=== PATIENT | female | born 1935 | race Caucasian/White ===

== ENCOUNTER → 2018-02-15 | Outpatient (CLI) | payer MEDICARE ==
--- NOTE | 2018-02-15 15:39 | RAD ---
Examination: Ultrasound kidneys HISTORY: History of chronic kidney disease COMPARISON: None available FINDINGS: The right kidney measures 9.9 x 4.0 x 3.5 cm. The left kidney measures 10.0 x 4.5 x 4.5 cm. There is a 2.5 cm cyst identified in the left kidney. Few prominent left renal pyramids identified. No ureteral jets identified in the urinary bladder. Urinary bladder is mildly distended. IMPRESSION: 1. 2.5 cm cyst identified in the left kidney. Electronically signed by: Lucio Staley MD (02/15/2018 3:36 PM) [id number]
--- NOTE | 2018-02-15 17:17 | RAD ---
Examination: Ultrasound thyroid HISTORY: History of enlarged thyroid COMPARISON: None available. FINDINGS: The right lobe of the thyroid gland measures 3.5 x 1.1 x 1.1 cm. The left lobe of the thyroid gland measures 3.9 x 0.8 x 1.0 cm. There is a solid-appearing nodule identified in the right lower thyroid gland measuring 1 cm with vascular flow within. Tiny punctate microvascular calcifications identified in the nodule. IMPRESSION: Solid-appearing 1 cm nodule identified in the right lobe of thyroid gland. ACR TR 4. Recommend fine-needle aspiration. Electronically signed by: Lucio Staley MD (02/15/2018 5:13 PM) [id number]
== END | disposition home or self-care (01) ==
LOC: US 12:40
PROVIDERS: ATTEND Nurse Practitioner Family
DX: E04.1 Nontoxic single thyroid nodule (principal); N28.1 Cyst of kidney, acquired; N18.9 Chronic kidney disease, unspecified; Z85.118 Personal history of other malignant neoplasm of bronchus and lung
CPT/HCPCS: 76536; 76770

== ENCOUNTER 2018-04-17 01:30 | Inpatient (IN) | payer MEDICARE ==
[~2018-04-17] VITALS: Ht 167.6 cm; Wt 66.1 kg
[2018-04-17] MEDS ORDERED: IV NORMAL SALINE 500ML 500 ML IV ONE (01:45)
[2018-04-17] MEDS ORDERED: cloNIDine HCL 0.1 MG TABLET PO ONE (01:45)
[2018-04-17] MEDS ORDERED: ONDANSETRON PF 4 MG/2 ML VIAL. IV PRN ×2 (01:45→02:00)
--- NOTE | 2018-04-17 01:45 | ED.ADGEN ---
Adult General Chief Complaint Chief Complaint dizziness HPI HPI 82 years old female with history of hypertension who presented to the emergency department with vertigo stated her symptoms started around 8 PM and she presented to the emergency department at 1:40 AM. ' She describes her dizziness as room spinning around upon EMS arrival her blood pressure was 212/100. Last week she was admitted to [facility] for the same reason she had a workup done they increased her lisinopril to 40 mg and she was advised to follow-up with cardiology and outpatient. She denies any weakness or numbness and upper extremities and lower extremities no slurred speech no aphasia Review of Systems Review of Systems Constitutional: Denies fever or chills [] Eyes: Denies change in visual acuity, redness, or eye pain [] HENT: Denies nasal congestion or sore throat [] Respiratory: Denies cough or shortness of breath [] Cardiovascular: No additional information not addressed in HPI [] GI: Denies abdominal pain, nausea, vomiting, bloody stools or diarrhea [] : Denies dysuria or hematuria [] Musculoskeletal: Denies back pain or joint pain [] Integument: Denies rash or skin lesions [] Neurologic: Denies headache, focal weakness or sensory changes [] Endocrine: Denies polyuria or polydipsia [] All other systems were reviewed and found to be within normal limits, except as documented in this note. Current Medications Current Medications Current Medications Medications (Trade) Dose Ordered Sig/Nicholas Start Time Stop Time Status Last Admin Dose Admin Acetaminophen (Tylenol) 650 mg PRN Q4HRS PRN 04/17/18 02:00 04/18/18 01:59 UNV Clonidine HCl (Catapres) 0.1 mg 1X ONCE 04/17/18 01:45 04/17/18 01:46 UNV 04/17/18 02:00 0.1 MG Labetalol HCl (Normodyne) 10 mg Q1HR PRN 04/17/18 02:00 UNV Meclizine HCl (Antivert) 25 mg PRN Q6HRS PRN 04/17/18 01:45 UNV 04/17/18 02:00 25 MG Ondansetron HCl (Zofran) 4 mg PRN Q4HRS PRN 04/17/18 02:00 04/18/18 01:59 UNV Sodium Chloride 1,000 ml @ 0 mls/hr Q0M 04/17/18 01:46 04/18/18 01:45 UNV Physical Exam Physical Exam Constitutional: Well developed, well nourished, no acute distress, non-toxic appearance. [] HENT: Normocephalic, atraumatic, bilateral external ears normal, oropharynx moist, no oral exudates, nose normal. [] Eyes: PERRLA, EOMI, conjunctiva normal, no discharge. []Positive nystagmus Neck: Normal range of motion, no tenderness, supple, no stridor. [] Cardiovascular:Heart rate regular rhythm, no murmur [] Lungs & Thorax: Bilateral breath sounds clear to auscultation [] Abdomen: Bowel sounds normal, soft, no tenderness, no masses, no pulsatile masses. [] Skin: Warm, dry, no erythema, no rash. [] Back: No tenderness, no CVA tenderness. [] Extremities: No tenderness, no cyanosis, no clubbing, ROM intact, no edema. [] Neurologic: Alert and oriented X 3, normal motor function, normal sensory function, no focal deficits noted. [] Psychologic: Affect normal, judgement normal, mood normal. [] Current Patient Data Vital Signs Vital Signs Date Time Temp Pulse Resp B/P (MAP) Pulse Ox O2 Delivery O2 Flow Rate FiO2 04/17/18 02:00 64 195/86 Lab Results Laboratory Tests Test 04/17/18 01:35 Sodium Level 142 mmol/L (136-145) Potassium Level 4.0 mmol/L (3.5-5.1) Chloride Level 103 mmol/L (98-107) Carbon Dioxide Level 28 mmol/L (21-32) Anion Gap 11 (6-14) Blood Urea Nitrogen 16 mg/dL (7-20) Creatinine 0.9 mg/dL (0.6-1.0) Estimated GFR (Cockcroft-Gault) 59.9 Glucose Level 116 mg/dL (70-99) H Calcium Level 9.1 mg/dL (8.5-10.1) EKG EKG [] Radiology/Procedures Radiology/Procedures [] Course & Med Decision Making Course & Med Decision Making Pertinent Labs and Imaging studies reviewed. (See chart for details) [] Final Impression Final Impression [] Problems: (1) Vertigo (2) Hypertensive crisis Dragon Disclaimer Dragon Disclaimer This electronic medical record was generated, in whole or in part, using a voice recognition dictation system. CHINYERE RUIZ MD Apr 17, 2018 01:45
[2018-04-17] MEDS: IV NORMAL SALINE 1,000ML 1,000 ML IV SCH ×2 (01:46→18:07)
[2018-04-17 01:59] LABS: CALCIUM 9.1 mg/dL (8.5-10.1); CREATININE 0.9 mg/dL (0.6-1.0); GFR 59.9
[2018-04-17] MEDS: MECLIZINE 12.5 MG TABLET. PO PRN ×2 (02:00→08:33)
[2018-04-17] MEDS ORDERED: LABETALOL 20 MG/4 ML DISP.SYRIN. IVP PRN (02:00)
--- NOTE | 2018-04-17 02:15 | RAD ---
INDICATION: Dizziness COMPARISON: None. TECHNIQUE: Axial CT images obtained through the head without intravenous contrast. One or more of the following individualized dose reduction techniques were utilized for this examination: 1. Automated exposure control; 2. Adjustment of the mA and/or kV according to patient size; 3. Use of iterative reconstruction technique. FINDINGS: No intracranial hemorrhage. No midline shift. Basal cisterns patents. Ventricles and sulci are globally prominent. No acute osseous abnormality. Orbits and paranasal sinuses unremarkable. Scattered foci of low attenuation within the white matter. IMPRESSION: 1. No acute intracranial hemorrhage. 2. Scattered regions of low attenuation within the white matter. Non-specific in nature but frequently secondary to small vessel ischemic disease. If there is high clinical concern for acute causes MRI could better assess as to whether any of these foci are acute. 3. Prominence of ventricles and sulci which is frequently secondary to age related volume loss. Electronically signed by: Jesse Burch MD (04/17/2018 2:12 AM) [id number]
[2018-04-17 02:21] LABS: BASO # 0.1 x10^3/uL (0.0-0.2); BASO % 1 % (0-3); EOS # 0.2 x10^3/uL (0.0-0.7); EOS % 2 % (0-3); HEMATOCRIT 38.8 % (36.0-47.0); HEMOGLOBIN 12.8 g/dL (12.0-15.5); LYMPH # 2.6 x10^3/uL (1.0-4.8); LYMPH % 27 % (24-48); MEAN CORPUSCULAR HEMOGLOBIN 29 pg (25-35); MEAN CORPUSCULAR HGB CONC 33 g/dL (31-37); MEAN CORPUSCULAR VOLUME 88 fL (79-100); MONO # 0.7 x10^3/uL (0.0-1.1); MONO % 8 % (0-9); NEUT # 5.9 x10^3uL (1.8-7.7); NEUT % 62 % (31-73); PLATELET COUNT 304 x10^3/uL (140-400); RED BLOOD COUNT 4.43 x10^6/uL (3.50-5.40); RED CELL DISTRIBUTION WIDTH 14.2 % (11.5-14.5); WHITE BLOOD COUNT 9.4 x10^3/uL (4.0-11.0)
[2018-04-17 03:45] VITALS: BP 140/65
[2018-04-17 06:39] VITALS: BP 104/53
[2018-04-17 11:00] VITALS: BP 131/59
[2018-04-17] MEDS: ACETAMINOPHEN 325 MG TABLET PO PRN ×2 (14:46→18:50)
[2018-04-17 15:21] VITALS: BP 156/72
[2018-04-17] MEDS ORDERED: ASPI81TA50 PO (19:43)
[2018-04-17] MEDS ORDERED: ISOS60TA2 PO (19:43)
[2018-04-17] MEDS ORDERED: VALA500T PO (19:43)
[2018-04-17] MEDS ORDERED: SIMV20TA3 PO (19:43)
[2018-04-17] MEDS ORDERED: LISI-334 PO (19:43)
[2018-04-17] MEDS ORDERED: METO-247 PO (19:43)
[2018-04-17] MEDS ORDERED: DIAZ5TAB4 PO (19:43)
--- NOTE | 2018-04-17 19:51 | PDOC ---
Exam Note: Neo Note: Please also refer to the separate dictated note~for this date of service dictated separately.~Patient seen individually. Discussed the patient with Nursing staff reviewed the chart.~Reviewed interim history and current functioning. Reviewed vital signs,~Labs/ Radiology~and current medications noted below. Continue current treatment with the changes noted in the dictated addendum note Assessment: Vital Signs: Vital Signs Date Time Temp Pulse Resp B/P (MAP) Pulse Ox O2 Delivery O2 Flow Rate FiO2 04/17/18 15:21 58 15 156/72 (100) 04/17/18 11:00 99 Room Air 04/17/18 03:45 97.6 I&O Intake and Output 04/17/18 06:59 Intake Total 740 ml Balance 740 ml Intake Oral 100 ml IV Total 640 ml Labs: Laboratory Tests Test 04/17/18 01:35 04/17/18 03:30 White Blood Count 9.4 x10^3/uL (4.0-11.0) Red Blood Count 4.43 x10^6/uL (3.50-5.40) Hemoglobin 12.8 g/dL (12.0-15.5) Hematocrit 38.8 % (36.0-47.0) Mean Corpuscular Volume 88 fL (79-100) Mean Corpuscular Hemoglobin 29 pg (25-35) Mean Corpuscular Hemoglobin Concent 33 g/dL (31-37) Red Cell Distribution Width 14.2 % (11.5-14.5) Platelet Count 304 x10^3/uL (140-400) Neutrophils (%) (Auto) 62 % (31-73) Lymphocytes (%) (Auto) 27 % (24-48) Monocytes (%) (Auto) 8 % (0-9) Eosinophils (%) (Auto) 2 % (0-3) Basophils (%) (Auto) 1 % (0-3) Neutrophils # (Auto) 5.9 x10^3uL (1.8-7.7) Lymphocytes # (Auto) 2.6 x10^3/uL (1.0-4.8) Monocytes # (Auto) 0.7 x10^3/uL (0.0-1.1) Eosinophils # (Auto) 0.2 x10^3/uL (0.0-0.7) Basophils # (Auto) 0.1 x10^3/uL (0.0-0.2) Sodium Level 142 mmol/L (136-145) Potassium Level 4.0 mmol/L (3.5-5.1) Chloride Level 103 mmol/L (98-107) Carbon Dioxide Level 28 mmol/L (21-32) Anion Gap 11 (6-14) Blood Urea Nitrogen 16 mg/dL (7-20) Creatinine 0.9 mg/dL (0.6-1.0) Estimated GFR (Cockcroft-Gault) 59.9 Glucose Level 116 mg/dL (70-99) H Calcium Level 9.1 mg/dL (8.5-10.1) Troponin I Quantitative < 0.017 ng/mL (0-0.055) Nasal Screen MRSA (PCR) Negative (Negative) Current Medications: Meds: Current Medications Meclizine HCl (Antivert) 25 mg PRN Q6HRS PRN PO DIZZINESS Last administered on 04/17/18 08:33; Start 04/17/18 at 01:45 Ondansetron HCl (Zofran) 4 mg PRN 1X PRN IV NAUSEA/VOMITING Last administered on 04/17/18 02:08; Start 04/17/18 at 01:45 Sodium Chloride 500 ml @ 500 mls/hr 1X ONCE IV Last administered on 01:45; Start 04/17/18 at 01:45; Stop 04/17/18 at 02:44; Status DC Clonidine HCl (Catapres) 0.1 mg 1X ONCE PO Last administered on 04/17/18 02: 00; Start 04/17/18 at 01:45; Stop 04/17/18 at 02:16; Status DC Ondansetron HCl (Zofran) 4 mg PRN Q4HRS PRN IV NAUSEA/VOMITING; Start 04/17/18 at 02:00; Stop 04/18/18 at 01:59 Sodium Chloride 1,000 ml @ 75 mls/hr [id number] IV Last administered on 18:07; Start 04/17/18 at 01:46; Stop 04/18/18 at 01:45 Acetaminophen (Tylenol) 650 mg PRN Q4HRS PRN PO FEVER Last administered on 2/18 /19at 18:50; Start 04/17/18 at 02:00; Stop 04/18/18 at 01:59 Labetalol HCl (Normodyne) 10 mg PRN Q1HR PRN IVP HYPERTENSION, SEE COMMENTS Last administered on 04/17/18at 02:39; Start 04/17/18 at 02:00 Active Scripts Active Reported Aspir-Low (Aspirin) 81 Mg Tablet.dr 1 Tab PO DAILY Simvastatin 20 Mg Tablet 20 Mg PO DAILY Metoprolol Succinate ( Xl ) (Metoprolol Succinate) 100 Mg Tab.er.24h 100 Mg PO DAILY Isosorbide Mononitrate Er (Isosorbide Mononitrate) 60 Mg Tab.er.24h 60 Mg PO DAILY Lisinopril 20 Mg Tablet 40 Mg PO DAILY Valacyclovir (Valacyclovir Hcl) 500 Mg Tablet 800 Mg PO DAILY Diazepam 5 Mg Tablet 5 Mg PO HS I have reviewed the current psychotropics carefully including drug interactions. Risk benefit ratio favors no change other than as noted in my dictated progress note. Diagnosis: Problems: (1) Anxiety disorder (2) Adjustment disorder with anxiety (3) Major depressive disorder, recurrent episode MARINA ELLIS MD Apr 17, 2018 19:50
[2018-04-17] MEDS ORDERED: diazePAM 2 MG TABLET PO PRN (20:00)
--- NOTE | 2018-04-17 20:45 | CONS ---
DATE OF CONSULTATION: 04/17/2018 PSYCHIATRIC CONSULTATION This note covers elements not covered in my initial note 04/17/2018. IDENTIFYING DATA: The patient is an 82-year-old female seen in ICU bed 5, [facility] for a psychiatric consult requested by Dr. Solorio on account of the patient's anxiety and being "bundle of nerves." The patient was seen individually, discussed with Dr. Solorio and nursing staff, reviewed the chart. CHIEF COMPLAINT: "My plastic surgeon, Dr. Cox started me on Valium 5 mg at night after my 5 years ago. This helps me sleep. I do not take it every day. I do not want to change it. I take diazepam, not Valium." HISTORY OF PRESENT ILLNESS: The patient states she became depressed, extremely anxious about 5 years ago after the loss of her and her plastic surgeon. At that time, Dr. Cox started her on the Valium, which she is taking 5 mg at night. She states she does not take it every day, but if she can sleep, it has been particularly helpful. She states she has tried many other things, but nothing works like the Valium. No clear symptoms of bipolar disorder, suicidal or homicidal ideation. She has been admitted with hypertensive crisis and states for a few days prior to admission, she was having word finding problems, which are gradually improving as her blood pressure is stabilized. PAST PSYCHIATRIC HISTORY: As above. MEDICAL HISTORY: Hypertension, vertigo. DRUG ALLERGIES: CODEINE, PENICILLIN. FAMILY HISTORY: Noncontributory. SOCIAL HISTORY: No alcohol or drug abuse. 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 She lives at home with her son and states she does drive, but recently "my battery has been ." MENTAL STATUS EXAMINATION: The patient is seen individually. She is awake, alert, oriented. She is pleasant, verbal. Speech is coherent. Attention span somewhat short. Language function intact. She does appear somewhat anxious. No active suicidal or homicidal ideation. Intellect average. Insight good. Judgment intact. IMPRESSION: Adjustment disorder with anxiety; anxiety disorder, unspecified; history of major depressive disorder; hypertensive crisis. RECOMMENDATION: From a psychiatric standpoint since the patient states she has been on Valium 5 mg p.o. at bedtime, I would leave it unchanged for now until she is medically stable and perhaps then it could be reduced. We could drop it down to 2.5 mg p.o. at bedtime p.r.n. in the interim. As an outpatient, consideration may be given to tapering this and using trazodone instead for her insomnia or even low dose Remeron at 7.[address]time. [address] Solorio, thank you for the opportunity to participate in your patient's care. We will follow with you. MAN Josefina ELLIS MD DR: ISABELA/ty JOB#: [id number] / [id number]
[2018-04-17 21:22] VITALS: BP 141/71
[2018-04-17] MEDS: SIMVASTATIN 20 MG TABLET PO SCH (21:40)
--- NOTE | 2018-04-17 22:48 | HP ---
ADMIT DATE: 04/17/2018 HISTORY OF PRESENT ILLNESS: The patient is an 82-year-old female patient with history of hypertension, who presented to the Emergency Department complaining of vertigo; stated her symptoms started around 8:00 p.m. She presented to the Emergency around 1:40 a.m. She describes her dizziness as room spinning around. On arrival to the Emergency Room, her blood pressure was 212/100 and last week, she was admitted to [facility] for the same reason and had a workup done. They have increased her lisinopril to 40 mg. She was advised to follow with her career counselor as an outpatient. She denied any weakness, numbness. No slurring of speech or aphasia. She was investigated in the Emergency Room and was found to be hypertensive on arrival with a blood pressure of 192/86. Her lab work was unremarkable. Her troponin was less than 0.017. She has had a CT scan of the head that was unremarkable, showed that there is no acute intracranial hemorrhage, scattered regions of low attenuation within the white matter, nonspecific in nature, but frequently secondary to small vessel ischemic disease. There is high clinical concern for acute causes, MRI could better assess as to whether any of these foci are acute, prominence of ventricles and sulci, which is frequently secondary to age-related volume loss. She was admitted to control her blood pressure and also to consult neurologist, career counselor. She also seemed somewhat anxious and we will also consult the career counselor to evaluate and assist with management. PAST MEDICAL HISTORY: Significant for Meniere's disease, hypertension, coronary artery disease, status post PCI with stent deployment x 4, hyperlipidemia. She has lung cancer treated with recent radiation therapy and follows with , peripheral neuropathy, osteoarthritis. She has also dysphagia to both solids and liquids, and also chronic constipation. PAST SURGICAL HISTORY: Significant for right rotator cuff surgery. She has also had shingles and she was treated and she has ovarian cyst removed, cholecystectomy, 3 D and C. She had the bronchoscopy, colonoscopy, and esophagogastroduodenoscopy. ALLERGIES: She is allergic to PENICILLIN AND CODEINE. MEDICATIONS: Not available yet. FAMILY HISTORY: She is the only child, has no brothers and sister. Her father at the age of 96 and mother at the age of 43 because of end-stage renal disease. SOCIAL HISTORY: She is , has 2 sons and 2 daughters. She quit smoking 2 years ago. She does not drink alcohol. She was a homemaker. REVIEW OF SYSTEMS: The patient has right cataract extraction. Denied any glaucoma or macular degeneration. 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 She has denied any nosebleeds, stuffy nose or postnasal drip. Denied any sore throat, sore tongue, toothache, hoarseness of voice or difficulty swallowing. Did have some nausea, but no vomiting. Denied any diarrhea or constipation. Denied any hematemesis, melena or hematochezia. Denied any dysuria or frequency. She did complain of chest pain. Denied any shortness of breath, orthopnea, paroxysmal nocturnal dyspnea. Denied any cough, phlegm or hemoptysis. PHYSICAL EXAMINATION: GENERAL: When I examined her, she was resting slightly propped up in bed, in no apparent respiratory distress, slightly pale, no jaundice, cyanosis, or thyromegaly. No jugular venous distension. No limb edema. VITAL SIGNS: Her heart rate was 62, blood pressure was 163/75, temperature was 97.5, respiratory rate 24, and oxygen saturation was 97% on room air. HEAD, EYES, EARS, NOSE, AND THROAT: Showed normocephalic, atraumatic. NECK: Supple. HEART: Showed normal first and second sounds. No gallop, rub or murmur. CHEST: Clear to auscultation. No crepitation or rhonchi. ABDOMEN: Distended, soft, nontender. No guarding or rigidity. No organomegaly. All hernial orifices intact. Bowel sounds normal. NEUROLOGIC: She is awake. She is very hard of hearing, otherwise all cranial nerves intact. EXTREMITIES: She moves extremities without difficulty. She said she is unsteady on her feet as I have not tested her gait. SKIN: She has shingles in the distribution of probably T4 dermatome on the right side. LABORATORY DATA: Showed a serum sodium 142, potassium 4, chloride 103, bicarbonate 28, anion gap of 11, BUN 16, creatinine 0.9, estimated GFR was 60 mL per minute. Her glucose was 116, calcium was 9.1. Her white cell count was 9400, hemoglobin 12.8, hematocrit 38, MCV 88, and platelet count of 304,000. ASSESSMENT AND PLAN: In summary, this is an 82-year-old female patient who was admitted with new onset of vertigo on a background of Meniere's disease, hypertensive urgency. She also seemed to be extremely anxious. I do not have all the details, but she apparently has metastatic lung cancer and biopsies were planned for her right cervical lymph node if my understanding is right. I will get more information from [facility]. I will consult Dr. Jensen, the Cardiology team as well as Dr. Alvarado to assist with her management of anxiety. DAHLIA BRAMBILA MD DR: RADHA/ty JOB#: [id number] / [id number]
[2018-04-17 23:22] VITALS: BP 130/61
[2018-04-17] MEDS: diazePAM 5 MG TABLET PO SCH (23:23)
[2018-04-18] VITALS (9 sets, daily range): BP systolic 133–172; BP diastolic 60–78
[2018-04-18] MEDS ORDERED: ACETAMINOPHEN 500 MG TABLET PO PRN (05:15)
[2018-04-18] MEDS: ACETAMINOPHEN 325 MG TABLET PO PRN ×3 (05:40→23:03)
[2018-04-18 06:25] LABS: HEMATOCRIT 34.6 % (36.0-47.0); HEMOGLOBIN 11.4 g/dL (12.0-15.5); RED BLOOD COUNT 3.93 x10^6/uL (3.50-5.40); RED CELL DISTRIBUTION WIDTH 14.3 % (11.5-14.5); WHITE BLOOD COUNT 5.6 x10^3/uL (4.0-11.0)
[2018-04-18 06:40] LABS: CALCIUM 8.3 mg/dL (8.5-10.1); CREATININE 0.9 mg/dL (0.6-1.0); GFR 59.9; POTASSIUM 3.8 mmol/L (3.5-5.1)
[2018-04-18] MEDS: ASPIRIN ENTERIC COATED 81 MG TABLET.DR. PO SCH (08:26)
[2018-04-18] MEDS: LISINOPRIL 20 MG TABLET PO SCH (08:27)
[2018-04-18] MEDS: ISOSORBIDE MONONITRATE ER 30 MG TAB.ER.24H PO SCH (08:28)
[2018-04-18] MEDS: METOPROLOL SUCC 24HR ER 50 MG TAB.ER.24H. PO SCH (08:29)
[2018-04-18] MEDS ORDERED: VALACYCLOVIR HCL PO SCH (09:00)
--- NOTE | 2018-04-18 10:29 | PDOC2 ---
JASPER SAENZ LOADING SHOVEL OILER 04/18/18 1029: CONSULT Date of Admission DATE: 04/18/18 TIME: 10:28 Reason for Consult: HTN History of Present Illness Ms Alejandro is an 82 year old female recently discharged from [facility]. See full consult from . She was discharged on 04/14/18 to home and reports she was sitting watching TV and suffering from a mild headache. She reports headache was becoming progressively worse so she went to lay down and had a sudden onset of severe dizziness and double vision with associated nausea and vomiting and when checked her blood pressure was significantly elevated. She reports compliance with her changed antihypertensive medications although she had not yet started her Amlodipine and reports she was instructed to only take this as needed for elevated pressure. She denies other new complaints but does report pain due to shingles. Her son is at bedside and reports she is hesitant to take new medications or analgesics for fear of increasing symptoms. Past Medical History see full consult 04.13.18 done at [facility] Current Medications Current Medications Meclizine HCl (Antivert) 25 mg PRN Q6HRS PRN PO DIZZINESS Last administered on 04/17/18at 08:33; Start 04/17/18 at 01:45 Ondansetron HCl (Zofran) 4 mg PRN 1X PRN IV NAUSEA/VOMITING Last administered on 04/17/18at 02:08; Start 04/17/18 at 01:45 Sodium Chloride 500 ml @ 500 mls/hr 1X ONCE IV Last administered on at 01:45; Start 04/17/18 at 01:45; Stop 04/17/18 at 02:44; Status DC Clonidine HCl (Catapres) 0.1 mg 1X ONCE PO Last administered on 04/17/18at 02: 00; Start 04/17/18 at 01:45; Stop 04/17/18 at 02:16; Status DC Ondansetron HCl (Zofran) 4 mg PRN Q4HRS PRN IV NAUSEA/VOMITING; Start 04/17/18 at 02:00; Stop 04/18/18 at 01:59; Status DC Sodium Chloride 1,000 ml @ 75 mls/hr [id number] IV Last administered on at 18:07; Start 04/17/18 at 01:46; Stop 04/18/18 at 01:45; Status DC Acetaminophen (Tylenol) 650 mg PRN Q4HRS PRN PO FEVER Last administered on 04/17at 18:50; Start 04/17/18 at 02:00; Stop 04/18/18 at 01:59; Status DC Labetalol HCl (Normodyne) 10 mg PRN Q1HR PRN IVP HYPERTENSION, SEE COMMENTS Last administered on 04/17/18at 02:39; Start 04/17/18 at 02:00 Diazepam (Valium) 2 mg PRN QHS PRN PO ANXIETY; Start 04/17/18 at 20:00 Diazepam (Valium) 5 mg HS PO Last administered on 04/17/18at 23:23; Start at 21:00 Lisinopril (Prinivil) 40 mg DAILY PO Last administered on 04/18/18 08:27; Start 04/18/18 at 09:00 Aspirin (Aspirin Enteric Coated) 81 mg DAILYWBKFT PO Last administered on 08:26; Start 04/18/18 at 08:00 Isosorbide Mononitrate (Imdur) 60 mg DAILY PO Last administered on 04/18/18 08 :28; Start 04/18/18 at 09:00 Metoprolol Succinate (Toprol Xl) 100 mg DAILY PO Last administered on 08:29; Start 04/18/18 at 09:00 Simvastatin (Zocor) 20 mg HS PO Last administered on 04/17/18at 21:40; Start at 21:00 Non-Formulary Medication (Valacyclovir Hcl (Valacyclovir)) 800 mg DAILY PO ; Start 04/18/18 at 09:00; Stop 04/18/18 at 10:08; Status DC Acetaminophen (Tylenol) 650 mg PRN Q6HRS PRN PO PAIN / TEMP; Start 04/18/18 at 05:15; Stop 04/18/18 at 05:36; Status DC Acetaminophen (Tylenol) 650 mg PRN Q6HRS PRN PO PAIN / TEMP Last administered on 04/18/18at 09:53; Start 04/18/18 at 05:45 Valacyclovir HCl (Valtrex) 500 mg TID PO ; Start 04/18/18 at 14:00 Active Scripts Active Reported Aspir-Low (Aspirin) 81 Mg Tablet.dr 1 Tab PO DAILY Simvastatin 20 Mg Tablet 20 Mg PO DAILY Metoprolol Succinate ( Xl ) (Metoprolol Succinate) 100 Mg Tab.er.24h 100 Mg PO DAILY Isosorbide Mononitrate Er (Isosorbide Mononitrate) 60 Mg Tab.er.24h 60 Mg PO DAILY Lisinopril 20 Mg Tablet 40 Mg PO DAILY Valacyclovir (Valacyclovir Hcl) 500 Mg Tablet 800 Mg PO DAILY Diazepam 5 Mg Tablet 5 Mg PO HS Allergies: Coded Allergies: Penicillins (Verified Allergy, Intermediate, 04/17/18) codeine (Verified Allergy, Intermediate, 04/17/18) Review of System as per HPI otherwise negative General: Alert, Oriented X3, Cooperative, No acute distress HEENT: Atraumatic, EOMI, Mucous membr. moist/pink Lungs: Clear to auscultation, Normal air movement Heart: Normal S1, Normal S2, Other (no significant murmurs, no gallops, clicks or rubs) Abdomen: Normal bowel sounds, Soft, No tenderness Extremities: No cyanosis, No edema, Normal pulses Neuro: Normal speech, Strength at 5/5 X4 ext Psych/Mental Status: Mental status NL, Mood NL VITALS Vital Signs Date Time Temp Pulse Resp B/P (MAP) Pulse Ox O2 Delivery O2 Flow Rate FiO2 04/18/18 08:29 61 131/70 04/18/18 05:09 98.4 17 98 Room Air Labs Laboratory Tests Test 04/17/18 01:35 04/17/18 03:30 04/18/18 06:10 White Blood Count 9.4 x10^3/uL (4.0-11.0) 5.6 x10^3/uL (4.0-11.0) Red Blood Count 4.43 x10^6/uL (3.50-5.40) 3.93 x10^6/uL (3.50-5.40) Hemoglobin 12.8 g/dL (12.0-15.5) 11.4 g/dL (12.0-15.5) Hematocrit 38.8 % (36.0-47.0) 34.6 % (36.0-47.0) Mean Corpuscular Volume 88 fL (79-100) 88 fL (79-100) Mean Corpuscular Hemoglobin 29 pg (25-35) 29 pg (25-35) Mean Corpuscular Hemoglobin Concent 33 g/dL (31-37) 33 g/dL (31-37) Red Cell Distribution Width 14.2 % (11.5-14.5) 14.3 % (11.5-14.5) Platelet Count 304 x10^3/uL (140-400) 249 x10^3/uL (140-400) Neutrophils (%) (Auto) 62 % (31-73) Lymphocytes (%) (Auto) 27 % (24-48) Monocytes (%) (Auto) 8 % (0-9) Eosinophils (%) (Auto) 2 % (0-3) Basophils (%) (Auto) 1 % (0-3) Neutrophils # (Auto) 5.9 x10^3uL (1.8-7.7) Lymphocytes # (Auto) 2.6 x10^3/uL (1.0-4.8) Monocytes # (Auto) 0.7 x10^3/uL (0.0-1.1) Eosinophils # (Auto) 0.2 x10^3/uL (0.0-0.7) Basophils # (Auto) 0.1 x10^3/uL (0.0-0.2) Sodium Level 142 mmol/L (136-145) 145 mmol/L (136-145) Potassium Level 4.0 mmol/L (3.5-5.1) 3.8 mmol/L (3.5-5.1) Chloride Level 103 mmol/L (98-107) 110 mmol/L (98-107) Carbon Dioxide Level 28 mmol/L (21-32) 27 mmol/L (21-32) Anion Gap 11 (6-14) 8 (6-14) Blood Urea Nitrogen 16 mg/dL (7-20) 11 mg/dL (7-20) Creatinine 0.9 mg/dL (0.6-1.0) 0.9 mg/dL (0.6-1.0) Estimated GFR (Cockcroft-Gault) 59.9 59.9 Glucose Level 116 mg/dL (70-99) 83 mg/dL (70-99) Calcium Level 9.1 mg/dL (8.5-10.1) 8.3 mg/dL (8.5-10.1) Troponin I Quantitative < 0.017 ng/mL (0-0.055) Nasal Screen MRSA (PCR) Negative (Negative) Images CT head - IMPRESSION: 1. No acute intracranial hemorrhage. 2. Scattered regions of low attenuation within the white matter. Non-specific in nature but frequently secondary to small vessel ischemic disease. If there is high clinical concern for acute causes MRI could better assess as to whether any of these foci are acute. 3. Prominence of ventricles and sulci which is frequently secondary to age related volume loss. Assessment/Plan 1. accelerated hypertension - resume norvasc. Echo without significant abnormalities. ? reactive due to pain and anxiety. 2. Severe vertigo - neuro consulted. CT head without acute findings. ? utility of MRA. Will check carotid duplex. 3. paroxysmal atrial fibrillation, SR 4. CAD with prior PCI - angina free. consider outpatient MPI 5. bradycardia - reportedly at baseline, recent monitor completed at [facility]. request results. 6. HLD 7. hx lung CA 8. CKD stage 3 ROBERTO REY MD 04/18/18 1242: CONSULT Assessment/Plan Pt. seen and examined. Agree with above REAL ESTATE MANAGER note. Supportive care. May consider MPI given persistent HTN. Continue home meds. VSS Thanks. JASPER SAENZ APRN Apr 18, 2018 10:29 ROBERTO REY MD Apr 18, 2018 12:42
[2018-04-18] MEDS: MECLIZINE 12.5 MG TABLET. PO PRN (11:09)
[2018-04-18] MEDS: amLODIPine BESYLATE 5 MG TABLET PO SCH (11:09)
[2018-04-18] MEDS ORDERED: ONDANSETRON ODT 4 MG TAB.RAPDIS PO PRN (13:30)
[2018-04-18] MEDS: valACYclovir 500 MG TABLET. PO SCH ×2 (13:36→22:59)
[2018-04-18] MEDS ORDERED: ALPRAZolam 0.25 MG TABLET PO PRN (14:00)
--- NOTE | 2018-04-18 18:29 | RAD ---
DOPPLER CAROTID BILAT Clinical Indication: Dizziness. Procedure: Pulsed wave and color-flow duplex imaging was utilized to evaluate the extracranial carotid arteries. Comparison: None. Findings: RIGHT SIDE: Mild atherosclerotic plaque on kruse-scale images. Distal CCA peak systolic velocity 51 cm/sec. ICA peak systolic velocity 73 cm/sec. The right ICA/CCA ratio is 1.4. Flow within the right ECA is directed antegrade. To and Fro flow is seen in the right vertebral artery. LEFT SIDE: Mild atherosclerotic plaque on kruse-scale images. Distal CCA peak systolic velocity 63 cm/sec. ICA peak systolic velocity 73 cm/sec. The left ICA/CCA ratio is 1.2. Flow within the left vertebral artery and left ECA is directed antegrade. Carotid legend: CCA = common carotid artery ICA = internal carotid artery ECA = external carotid artery IMPRESSION: 1. No hemodynamically significant stenosis. 2. To and Fro flow in the right vertebral artery most likely secondary to subclavian steal phenomena. Electronically signed by: Joaquin West DO (04/18/2018 6:27 PM) [id number]
[2018-04-18] MEDS: diazePAM 5 MG TABLET PO SCH (22:59)
[2018-04-18] MEDS: SIMVASTATIN 20 MG TABLET PO SCH (22:59)
[2018-04-19 05:32] VITALS: BP 106/64
[2018-04-19 10:40] VITALS: BP 146/78
[2018-04-19] MEDS: ASPIRIN ENTERIC COATED 81 MG TABLET.DR. PO SCH (10:44)
[2018-04-19] MEDS: ISOSORBIDE MONONITRATE ER 30 MG TAB.ER.24H PO SCH (10:45)
[2018-04-19] MEDS: valACYclovir 500 MG TABLET. PO SCH ×2 (10:45→15:06)
[2018-04-19] MEDS: METOPROLOL SUCC 24HR ER 50 MG TAB.ER.24H. PO SCH (10:46)
[2018-04-19] MEDS: LISINOPRIL 20 MG TABLET PO SCH (10:46)
[2018-04-19] MEDS: amLODIPine BESYLATE 5 MG TABLET PO SCH (10:47)
[2018-04-19] MEDS: CAPSAICIN 0.025% TOPICAL CREAM 60GM TUBE. TP SCH ×2 (10:47→15:06)
[2018-04-19] MEDS: ACETAMINOPHEN 325 MG TABLET PO PRN (10:48)
--- NOTE | 2018-04-19 12:35 | PDOC ---
PROGRESS NOTES Assessment 1. accelerated hypertension - improved today with addition of norvasc. 2. Severe vertigo - Consider brain MRI/ Contrast CT, carotid duplex reveals abnormal flow in right vertebral artery suggestive of subclavian steal. Reviewed CT chest from last week with radiologist - dense calcification at right innominate/ subclavian suggestive of stenosis. , suggest CTA subclavian. 3. paroxysmal atrial fibrillation, remains SR 4. CAD with prior PCI - angina free. consider outpatient MPI 5. bradycardia - reportedly at baseline, recent monitor completed at [facility] [place]. request results. 6. HLD 7. hx lung CA 8. CKD stage 3 Subjective complains of difficulty concentrating of "finding words" otherwise feels ok. complains that she has been unable to do anything secondary to her symptoms. no chest pain, no dyspnea. very lightheaded yesterday with standing but negative orthostatics. Objective Vital Signs Date Time Temp Pulse Resp B/P (MAP) Pulse Ox O2 Delivery O2 Flow Rate FiO2 04/19/18 10:47 81 146/78 04/19/18 10:40 98.2 20 93 Room Air Intake and Output 04/19/18 06:59 Intake Total 970 ml Output Total 875 ml Balance 95 ml Intake Oral 970 ml Output Urine Total 875 ml Abdomen: Normal bowel sounds, Soft, No tenderness Heart: Normal S1, Normal S2, Other (no gallops, clicks or rubs) Extremities: No cyanosis, No edema, Normal pulses General: Alert, Oriented X3, Cooperative Lungs: Clear to auscultation, Normal air movement Neuro: Normal speech, Strength at 5/5 X4 ext Psych/Mental Status: Mental status NL, Mood NL Review of Relevant I have reviewed the following items edwin (where applicable) has been applied. Labs Laboratory Tests Test 04/18/18 06:10 White Blood Count 5.6 x10^3/uL (4.0-11.0) Red Blood Count 3.93 x10^6/uL (3.50-5.40) Hemoglobin 11.4 g/dL (12.0-15.5) Hematocrit 34.6 % (36.0-47.0) Mean Corpuscular Volume 88 fL (79-100) Mean Corpuscular Hemoglobin 29 pg (25-35) Mean Corpuscular Hemoglobin Concent 33 g/dL (31-37) Red Cell Distribution Width 14.3 % (11.5-14.5) Platelet Count 249 x10^3/uL (140-400) Sodium Level 145 mmol/L (136-145) Potassium Level 3.8 mmol/L (3.5-5.1) Chloride Level 110 mmol/L (98-107) Carbon Dioxide Level 27 mmol/L (21-32) Anion Gap 8 (6-14) Blood Urea Nitrogen 11 mg/dL (7-20) Creatinine 0.9 mg/dL (0.6-1.0) Estimated GFR (Cockcroft-Gault) 59.9 Glucose Level 83 mg/dL (70-99) Calcium Level 8.3 mg/dL (8.5-10.1) Medications Current Medications Meclizine HCl (Antivert) 25 mg PRN Q6HRS PRN PO DIZZINESS Last administered on 04/18/18 11:09; Start 04/17/18 at 01:45 Ondansetron HCl (Zofran) 4 mg PRN 1X PRN IV NAUSEA/VOMITING Last administered on 04/17/18 02:08; Start 04/17/18 at 01:45 Sodium Chloride 500 ml @ 500 mls/hr 1X ONCE IV Last administered on 01:45; Start 04/17/18 at 01:45; Stop 04/17/18 at 02:44; Status DC Clonidine HCl (Catapres) 0.1 mg 1X ONCE PO Last administered on 04/17/18 02: 00; Start 04/17/18 at 01:45; Stop 04/17/18 at 02:16; Status DC Ondansetron HCl (Zofran) 4 mg PRN Q4HRS PRN IV NAUSEA/VOMITING; Start 04/17/18 at 02:00; Stop 04/18/18 at 01:59; Status DC Sodium Chloride 1,000 ml @ 75 mls/hr [id number] IV Last administered on at 18:07; Start 04/17/18 at 01:46; Stop 04/18/18 at 01:45; Status DC Acetaminophen (Tylenol) 650 mg PRN Q4HRS PRN PO FEVER Last administered on 04/17at 18:50; Start 04/17/18 at 02:00; Stop 04/18/18 at 01:59; Status DC Labetalol HCl (Normodyne) 10 mg PRN Q1HR PRN IVP HYPERTENSION, SEE COMMENTS Last administered on 04/17/18at 02:39; Start 04/17/18 at 02:00 Diazepam (Valium) 2 mg PRN QHS PRN PO ANXIETY; Start 04/17/18 at 20:00 Diazepam (Valium) 5 mg HS PO Last administered on 04/18/18at 22:59; Start at 21:00 Lisinopril (Prinivil) 40 mg DAILY PO Last administered on 04/19/18 10:46; Start 04/18/18 at 09:00 Aspirin (Aspirin Enteric Coated) 81 mg DAILYWBKFT PO Last administered on 10:44; Start 04/18/18 at 08:00 Isosorbide Mononitrate (Imdur) 60 mg DAILY PO Last administered on 04/19/18 10 :45; Start 04/18/18 at 09:00 Metoprolol Succinate (Toprol Xl) 100 mg DAILY PO Last administered on 10:46; Start 04/18/18 at 09:00 Simvastatin (Zocor) 20 mg HS PO Last administered on 04/18/18 22:59; Start at 21:00 Non-Formulary Medication (Valacyclovir Hcl (Valacyclovir)) 800 mg DAILY PO ; Start 04/18/18 at 09:00; Stop 04/18/18 at 10:08; Status DC Acetaminophen (Tylenol) 650 mg PRN Q6HRS PRN PO PAIN / TEMP; Start 04/18/18 at 05:15; Stop 04/18/18 at 05:36; Status DC Acetaminophen (Tylenol) 650 mg PRN Q6HRS PRN PO PAIN / TEMP Last administered on 04/19/18 10:48; Start 04/18/18 at 05:45 Valacyclovir HCl (Valtrex) 500 mg TID PO Last administered on 04/19/18 10:45; Start 04/18/18 at 14:00 Amlodipine Besylate (Norvasc) 5 mg DAILY PO Last administered on 04/19/18 10: 47; Start 04/18/18 at 11:00 Capsaicin (Zostrix) 1 nathaniel TID TP Last administered on 04/19/18at 10:47; Start at 09:00 Ondansetron HCl (Zofran Odt) 4 mg PRN Q4HRS PRN PO NAUSEA/VOMITING Last administered on 04/18/18at 13:30; Start 04/18/18 at 13:30 Alprazolam (Xanax) 0.25 mg PRN Q8HRS PRN PO ANXIETY / AGITATION Last administered on 04/18/18at 14:03; Start 04/18/18 at 14:00 Active Scripts Active Reported Aspir-Low (Aspirin) 81 Mg Tablet.dr 1 Tab PO DAILY Simvastatin 20 Mg Tablet 20 Mg PO DAILY Metoprolol Succinate ( Xl ) (Metoprolol Succinate) 100 Mg Tab.er.24h 100 Mg PO DAILY Isosorbide Mononitrate Er (Isosorbide Mononitrate) 60 Mg Tab.er.24h 60 Mg PO DAILY Lisinopril 20 Mg Tablet 40 Mg PO DAILY Valacyclovir (Valacyclovir Hcl) 500 Mg Tablet 800 Mg PO DAILY Diazepam 5 Mg Tablet 5 Mg PO HS Vitals/I & O Vital Sign - Last 24 Hours 04/18/18 04/18/18 04/18/18 04/18/18 13:31 14:45 19:10 20:00 Temp 98.4 Pulse 55 58 65 Resp 18 B/P (MAP) 172/66 (101) 153/78 (103) 150/74 (99) Pulse Ox 95 O2 Delivery Room Air Room Air 04/18/18 04/19/18 04/19/18 04/19/18 23:00 05:32 10:40 10:45 Temp 97.9 97.9 98.2 Pulse 61 60 81 81 Resp 18 20 20 B/P (MAP) 133/75 (94) 106/64 (78) 146/78 (100) 146/78 Pulse Ox 97 96 93 O2 Delivery Room Air Room Air 04/19/18 04/19/18 04/19/18 10:46 10:46 10:47 Pulse 81 81 81 B/P (MAP) 146/78 146/78 146/78 Intake and Output 04/18/18 04/18/18 04/19/18 14:59 22:59 06:59 Intake Total 490 ml 360 ml 120 ml Output Total 875 ml Balance -385 ml 360 ml 120 ml JASPER SAENZ APRN Apr 19, 2018 12:35
[2018-04-19 15:48] VITALS: BP 143/73
--- NOTE | 2018-04-19 17:59 | TS ---
DATE OF TRANSFER: HOSPITAL COURSE: The patient is an 82-year-old female patient who was admitted with severe vertigo. Her carotid duplex reveals abnormal flow in her right vertebral artery suggestive of subclavian steal and Dr. Monaco recommended doing CT angio of the subclavian as well as an MRI of the brain and therefore a decision for possible angioplasty and stent deployment and therefore a decision was made to transfer her back to [facility] to do the MRI, CT angio of the subclavian and to decide on further management according to finding. PHYSICAL EXAMINATION: GENERAL: When I saw her today, the patient was resting slightly propped up in bed, in no apparent respiratory distress, pale. No jaundice, cyanosis, or thyromegaly. No jugular venous distention. No limb edema. VITAL SIGNS: Her heart rate was 81, blood pressure was 146/78, temperature was 98, respiratory rate was 20, and oxygen saturation was 93% on room air. HEAD, EYES, EARS, NOSE, AND THROAT: Showed normocephalic, atraumatic. NECK: Supple. HEART: Showed normal first and second heart sounds. No gallop, rub, or murmur. CHEST: Clear to auscultation. No crepitation or rhonchi. ABDOMEN: Distended, soft, nontender. No guarding or rigidity. No organomegaly. All hernial orifices intact. Bowel sounds normal. NEUROLOGIC: She was awake, alert, responding appropriately. She moved extremities without difficulty. She seemed to be feeling much better today. Her intake over the last 24 hours was 1670, output was 525. LABORATORY DATA: Her lab work this morning showed white cell count 5600, hemoglobin 11, hematocrit 34, MCV 88, and platelet count of 249,000. Her chemistry showed serum sodium of 145, potassium 3.8, chloride 110, bicarbonate 27, anion gap of 8, BUN 11, creatinine 0.9, estimated GFR was 60 mL/min. Her glucose was 83, calcium was 8.3. DIAGNOSTIC DATA: Her CT scan of the head showed that there is no intracranial hemorrhage, no midline shift. Basal cisterns are patent. Ventricles and sulci are globally prominent and no acute osseous abnormality. Orbit and body of the sinuses unremarkable. Scattered foci of low attenuation within the white matter. Her carotid Doppler ultrasound showed that the patient showed no hemodynamic significant stenosis, to and fro flow in the right vertebral artery most likely secondary to subclavian steal phenomena. DISCHARGE MEDICATIONS: The patient was discharged to [facility] to continue on aspirin 81 mg once a day, diazepam 5 mg at bedtime, isosorbide mononitrate 60 mg daily, lisinopril 40 mg once a day, metoprolol succinate 100 mg once a day, simvastatin 20 mg daily, and valacyclovir 800 mg daily. She also will be discharged on Colace 100 mg twice a day, polyethylene glycol twice a day, and alprazolam 0.25 mg 3 times a day as needed. FINAL DISCHARGE DIAGNOSES: Severe vertigo with possible right subclavian steal syndrome; paroxysmal atrial fibrillation; coronary artery disease, status post PCI, angina-free; bradycardia, reportedly at baseline; hyperlipidemia; history of lung cancer; chronic kidney disease, stage 3; accelerated hypertension, improved with addition of Norvasc. We will arrange for an MRI, right subclavian CT angio and we will consult the cardiology for possible right subclavian steal syndrome. DAHLIA BRAMBILA MD DR: RADHA/ty JOB#: [id number] / [id number]
[2018-04-19] MEDS ORDERED: DOCUSATE SODIUM 100 MG CAPSULE PO SCH (21:00)
[2018-04-20] MEDS ORDERED: POLYETHYLENE GLYCOL 3350 17 GM PACKET. PO SCH (09:00)
--- NOTE | 2018-04-20 11:49 | EKG ---
[address] [address] Test Date: 2018-04-17 Test Time: 01:42:16 Pat Name: ELDER KIDD Department: Room: [facility] A Gender: F Community Cultural Development Officer: FAHEEM : 1935 Requested By: CHINYERE RUIZ Order Number: [id number] Reading MD: Lorne Lucas Measurements Intervals [place] Rate: 61 P: 80 DC: 146 QRS: 24 QRSD: 86 T: 52 QT: 434 QTc: 438 Interpretive Statements SINUS RHYTHM NONSPECIFIC ST-T WAVE CHANGES. Electronically Signed On 04-24-2018 10:26:05 SPUD GRADER by Lorne Lucas
== END 2018-04-19 17:00 | disposition short-term general hospital (02) | DRG 69 ==
LOC: ER 01:30 → UNDOADMIN 02:52 → 1 SOUTH 02:52 → ICU 03:05 → 1 SOUTH 04-18 16:56
PROVIDERS: ADMIT Internal Medicine; ATTEND Internal Medicine
DX: G45.8 Other transient cerebral ischemic attacks and related syndromes (principal); F33.9 Major depressive disorder, recurrent, unspecified; I16.0 Hypertensive urgency; F43.22 Adjustment disorder with anxiety; N18.3 Chronic kidney disease, stage 3 (moderate); I12.9 Hypertensive chronic kidney disease with stage 1 through stage 4 chronic kidney disease, or unspecified chronic kidney disease; B02.9 Zoster without complications; H81.09 Meniere's disease, unspecified ear; I25.10 Atherosclerotic heart disease of native coronary artery without angina pectoris; I48.0 Paroxysmal atrial fibrillation; Z85.118 Personal history of other malignant neoplasm of bronchus and lung; Z87.891 Personal history of nicotine dependence; Z95.5 Presence of coronary angioplasty implant and graft; E78.5 Hyperlipidemia, unspecified; G62.9 Polyneuropathy, unspecified; M19.90 Unspecified osteoarthritis, unspecified site; Z92.3 Personal history of irradiation; Z90.49 Acquired absence of other specified parts of digestive tract
CPT/HCPCS: 36415; 70450; 80048; 84484; 85025; 85027; 87641; 93005; 93880; 96374; 96375; J2405; J3490; J7040; J8597; Q0162; 99285-25; J7030

== ENCOUNTER → 2018-10-24 | Outpatient (CLI) | payer MEDICARE ==
[~2018-10-24] MED LIST: ASPI81TA50 PO; DIAZ5TAB4 PO; ISOS60TA2 PO; LISI-334 PO; METO-247 PO; SIMV20TA3 PO; VALA500T PO
[2018-10-24] MEDS: BARIUM SULFATE 60% 355 ML SUSP PO ONE (09:57)
--- NOTE | 2018-10-24 10:41 | RAD ---
Esophagram HISTORY: Dysphasia. EGD on October 20 with dilatation. History of left upper lobe lung cancer with treatment. Fluoroscopy time: 3.5 minutes Images: 7 images were obtained. Procedure and findings: The patient was given thick barium to drink. Exam is limited as mild aspiration occurred early in the procedure, and a complete esophagram was therefore not performed. The visualized esophagus is grossly patent without fixed stricture, particularly at the proximal through mid esophagus. The distal esophagus is not evaluated. Preliminary chest radiograph as compared with 04/12/2018. Left upper lobe opacity is again identified, presumably related to the patient's lung cancer. There is some increased density in the left suprahilar region and extending to the mass. Linear opacity in the right upper lobe is again seen. Peripheral right upper lobe nodule is redemonstrated. Widening of the right acromioclavicular joint with shortening and tapering of the outer clavicle is again seen. IMPRESSION: 1. Limited exam due to aspiration of barium into the trachea early in the procedure. The esophagus appears grossly patent, particularly at its proximal through mid aspect. These findings were discussed with the patient, as well as by telephone with Dr. Oliva's nurse, Ute, immediately following the procedure. 2. Abnormal opacity in the left upper lobe, presumably the patient's lung cancer, is again seen. There is some new opacity in the left suprahilar region and extending to the mass could be due to posttherapeutic scarring, progressive tumor or development of hilar kenya metastasis right lung opacities are roughly similar to the prior study. Electronically signed by: Jose Shelton MD (10/24/2018 10:38 AM) [id number]
== END | disposition home or self-care (01) ==
LOC: RAD 08:13
PROVIDERS: ATTEND Internal Medicine Gastroenterology
DX: R91.1 Solitary pulmonary nodule (principal); R47.02 Dysphasia; Z85.118 Personal history of other malignant neoplasm of bronchus and lung
CPT/HCPCS: 74220

== ENCOUNTER → 2019-04-10 | Outpatient (CLI) | payer MEDICARE ==
[~2019-04-10] MED LIST changes: +SIMV20TA18 PO; -SIMV20TA3 PO; -VALA500T PO; +VALA500T9 PO
--- NOTE | 2019-04-10 16:51 | RAD ---
CT study of the abdomen and pelvis without contrast COMPARISON: None available. INDICATIONS: Abdominal pain. TECHNIQUE: Noncontrast helical CT scanning of the abdomen and pelvis was performed. Without contrast, the sensitivity to detect organ pathology and GI tract pathology is decreased. PQRS compliance Statement One or more of the following individualized dose reduction techniques were utilized for this study: 1. Automated exposure control 2. Adjustment of the mA and/or kV according to patient size 3. Use of iterative reconstruction technique COMPARISON: No previous CT available. FINDINGS: On series 2 and image 115, there is a small 2 mm stone within the distal right ureter. No hydroureter or hydronephrosis is seen. No renal stone is evident. Bilateral renal cysts are seen. No adrenal mass is evident. The liver and spleen and pancreas are unremarkable. The gallbladder is not apparent and therefore appears to be surgically absent. No extrahepatic biliary ductal dilatation is seen. Calcified atheromatous disease of the abdominal aorta is seen. No focal aneurysmal dilatation is seen. No enlarged abdominal or pelvic lymphadenopathy is evident. Urinary bladder is not distended. No uterine mass is seen. No dominant ovarian cyst or mass is seen. The appendix is not visualized but there are no secondary CT findings of appendicitis. No obstructive bowel pattern is evident. No free intraperitoneal air or free fluid or mesenteric edema is seen. Mild pulmonary fibrosis of both lung bases is seen. No lytic process is evident. Significant primary degenerative osteoarthritis of the right hip joint is seen. IMPRESSION: Small nonobstructing 2 mm distal right ureteral stone seen just proximal to the UVJ. Significant primary degenerative osteoarthritis of the right hip joint. Electronically signed by: Oscar Kellogg MD (04/10/2019 4:49 PM) [facility]
== END | disposition home or self-care (01) ==
LOC: CT 10:42
PROVIDERS: ATTEND Family Medicine
DX: N20.1 Calculus of ureter (principal); N28.1 Cyst of kidney, acquired; I70.0 Atherosclerosis of aorta; M16.11 Unilateral primary osteoarthritis, right hip; J84.10 Pulmonary fibrosis, unspecified
CPT/HCPCS: 74176

== ENCOUNTER 2020-03-16 16:58 | Inpatient (IN) | payer MEDICARE ==
[~2020-03-16] VITALS: Ht 170.2 cm; Wt 59.1 kg
--- NOTE | 2020-03-16 17:26 | RAD ---
Exam: CT head INDICATION: Stroke TECHNIQUE: Sequential axial images through the head were obtained without the administration of IV co ntrast. Comparisons: 04/17/2018 FINDINGS: No focal parenchymal lesion or hemorrhage is identified. There is no midline shift or sulcal effaceme nt. Extensive patchy hypodensity in the periventricular, subcortical and deep white matter. No acute vasc ular territory infarction is identified. Bobo-white distinction is preserved. The ventricular system is within normal limits without compression hydrocephalus. The basal cisterns are well maintained. The visualized portions of the paranasal sinuses and mastoid air cells are well-pneumatized. No acute fractures. IMPRESSION: Extensive small vessel ischemic change which is progressed compared study in 2019. No acute hemorrhag e. If There remains persistent concerns for acute ischemia MRI would better evaluate. Exposure: One or more of the following in the visualized dose reduction techniques were utilized for this examination: 1. Automated exposure control 2. Adjustment of the MA and/or KV according to patient size Use of iterative of reconstructive technique FOR INTERNAL CODING PURPOSES Critical result: Findings discussed with Jorge Alberto at 03/16/2020 5:19 PM. RESULT CODE: (C) Electronically signed by: Luigi Youngblood MD (03/16/2020 5:23 PM) [facility]
[2020-03-16 17:42] LABS: HEMATOCRIT 37.3 % (36.0-47.0); HEMOGLOBIN 12.7 g/dL (12.0-15.5); RED BLOOD COUNT 4.36 x10^6/uL (3.50-5.40); RED CELL DISTRIBUTION WIDTH 13.2 % (11.5-14.5); WHITE BLOOD COUNT 12.1 x10^3/uL (4.0-11.0)
--- NOTE | 2020-03-16 17:44 | EKG ---
[address] [address] Test Date: 2020-03-16 Test Time: 17:12:04 Pat Name: ELDER KIDD Department: Room: Gender: F Tanning Solution Maker: MAURIZIO : 1935 Requested By: DAVY JEFFERSON Order Number: [id number] Reading MD: Measurements Intervals [place] Rate: 59 P: 54 WY: 190 QRS: 42 QRSD: 90 T: 30 QT: 464 QTc: 464 Interpretive Statements SINUS RHYTHM LOW LIMB LEAD VOLTAGE QRS(T) CONTOUR ABNORMALITY CONSISTENT WITH ANTEROSEPTAL INFARCT AGE UNDETERMINED ABNORMAL ECG RI6.02 No previous ECG available for comparison
[2020-03-16] MEDS ORDERED: ONDANSETRON PF 4 MG/2 ML VIAL. ONE (17:47)
[2020-03-16] MEDS: IV NORMAL SALINE 1,000ML 1,000 ML IV SCH (17:49)
--- NOTE | 2020-03-16 17:54 | PHYS DOC ---
Past History Past Medical History: Cancer, Heart Disease, Hypertension Additional Past Medical Histor: lung cancer (DAVY JEFFERSNO MD) Past Medical History: Arthritis, Cancer, COPD, Pneumonia Past Medical History Lung Cancer - dx 2017, tx with radiation x 3 (MERVAT IRIZARRY MD) Past Surgical History: Cancer Surgery (DAVY JEFFERSON MD) Alcohol Use: None Drug Use: None (DAVY JEFFERSON MD) Smoking: Cigarettes, Quit Greater Than 1 Year (MERVAT IRIZARRY MD) General Adult EDM: Chief Complaint: NEURO SYMPTOMS/DEFICITS HPI: HPI: Patient is n 84-year-old female brought in by EMS as a possible code stroke. Patient was at home and slumped over in her chair around 1620. Patient has baseline is alert and oriented. On EMS arrival her blood sugar is 134, she is lethargic but answering questions appropriately. Per EMS she was moving all extremities but would not cooperate with stroke scale due to lethargy. Patient states she has had a headache for 2 hours that is all over. Was not sudden onset. Complaining of photophobia, nausea, malaise. History limited by patient cooperation. Moving all extremities and denies any numbness. No neck rigidity, vomiting or diarrhea. Patient states she has not felt well since this morning. (DAVY JEFFERSON MD) Review of Systems: Review of Systems: All other systems within normal limits except for as noted in the HPI (DAVY JEFFERSON MD) Current Medications: Current Meds: Current Medications Medications (Trade) Dose Ordered Sig/Nicholas Start Time Stop Time Status Last Admin Dose Admin Ondansetron HCl (Zofran) 4 mg STK-MED ONCE 03/16/20 17:47 03/16/20 17:47 DC Sodium Chloride 1,000 ml @ 100 mls/hr Q10H 03/16/20 17:30 (DAVY JEFFERSON MD) Allergies: Allergies: Allergies Coded Allergies Type Severity Reaction Last Updated Verified Penicillins Allergy Intermediate 03/16/20 Yes codeine Allergy Intermediate 03/16/20 Yes (DAVY JEFFERSON MD) Physical Exam: PE: Constitutional: Well developed, well nourished, malaise, non-toxic appearance. [] HENT: Normocephalic, atraumatic, bilateral external ears normal, nose normal. [] Eyes: PERRLA, conjunctiva normal, no discharge. [] Neck: No rigidity, supple, no stridor. [] Cardiovascular: Regular rate and rhythm, brisk cap refill [] Lungs & Thorax: Non labored symmetric respirations, no tachypnea or respiratory distress [] Abdomen: Soft, nondistended, mild generalized tenderness palpation, no guarding or rebound. Skin: Warm, dry, no erythema, no rash. [] Back: Unremarkable Extremities: No deformities, range of motion grossly intact, no lower extremity edema [] Neurologic: Alert and oriented X 3, no focal deficits noted. [] Psychologic: Affect normal, judgement normal, mood normal. [] (DAVY JEFFERSON MD) Current Patient Data: Labs: Laboratory Tests Test 03/16/20 17:26 White Blood Count 12.1 x10^3/uL (4.0-11.0) H Red Blood Count 4.36 x10^6/uL (3.50-5.40) Hemoglobin 12.7 g/dL (12.0-15.5) Hematocrit 37.3 % (36.0-47.0) Mean Corpuscular Volume 86 fL (79-100) Mean Corpuscular Hemoglobin 29 pg (25-35) Mean Corpuscular Hemoglobin Concent 34 g/dL (31-37) Red Cell Distribution Width 13.2 % (11.5-14.5) Platelet Count 312 x10^3/uL (140-400) Vital Signs: Vital Signs Date Time Temp Pulse Resp B/P (MAP) Pulse Ox O2 Delivery O2 Flow Rate FiO2 03/16/20 17:10 97.4 57 16 158/60 (92) 97 Room Air (DAVY JEFFERSON MD) EKG: EKG: Sinus rhythm, normal axis, heart rate [address] elevation or depression, no ectopy, normal intervals. [] (DAVY JEFFERSON MD) Radiology/Procedures: Radiology/Procedures: xam: CT head INDICATION: Stroke TECHNIQUE: Sequential axial images through the head were obtained without the administration of IV contrast. Comparisons: 04/17/2018 FINDINGS: No focal parenchymal lesion or hemorrhage is identified. There is no midline shift or sulcal effacement. Extensive patchy hypodensity in the periventricular, subcortical and deep white matter. No acute vascular territory infarction is identified. Bobo-white distinction is preserved. The ventricular system is within normal limits without compression hydrocephalus. The basal cisterns are well maintained. The visualized portions of the paranasal sinuses and mastoid air cells are well- pneumatized. No acute fractures. IMPRESSION: Extensive small vessel ischemic change which is progressed compared study in 2019. No acute hemorrhage. If There remains persistent concerns for acute ischemia MRI would better evaluate. [] (DAVY JEFFERSON MD) Radiology/Procedures: [address] [address] IMAGING REPORT Signed PATIENT: ELDER KIDD ACCOUNT: [id number] : 1935 LOCATION: ER AGE: 84 SEX: F EXAM STATUS: REG ER ORD. PHYSICIAN: MERVAT IRIZARRY MD REASON: dyspnea PROCEDURE: CT CHEST WO CONTRAST Exam: CT of chest without contrast INDICATION: Dyspnea TECHNIQUE: Sequential axial images through the chest obtained without IV contrast. Sagittal and coronal reformatted images were reconstructed from the axial data and reviewed. Comparisons: Chest x-ray same day FINDINGS: Visualized portions of the thyroid are unremarkable. No enlarged mediastinal lymph nodes are identified. Heart size is normal. No pericardial effusion. Thoracic aorta has a normal course and caliber. Moderate coronary artery calcifications. Pulmonary artery is nonenlarged. There is a masslike consolidation in the left Upper lobe measuring 4.0 x 4.9 cm, with some internal calcifications. There is a 1.4 cm spiculated nodule in the right upper lobe series 2 image 40. Several other smaller pulmonary nodules are also noted in the right lung. There is a trace left pleural effusion. Visualized upper abdomen is unremarkable. No suspicious osseous lesions or acute fractures. IMPRESSION: 1. Masslike consolidation in the left upper lobe measuring 4.0 x 4.9 cm. This is nonspecific in etiology could relate to chronic atelectasis with inspissated material versus malignancy. Recommend continued follow-up imaging if more invasive intervention is not performed. 2. Several other smaller pulmonary nodules noted in the right lung as described above. Exposure: One or more of the following in the visualized dose reduction techniques were utilized for this examination: 1. Automated exposure control 2. Adjustment of the MA and/or KV according to patient size 3. Use of iterative of reconstructive technique Electronically signed by: Luigi Richards MD (03/16/2020 6:59 PM) [facility] DICTATED AND SIGNED BY: LUIGI RICHARDS MD DATE: 03/16/201851 CC: JEOVANNY SAMUELS MD; MERVAT IRIZARRY MD ~MTH0 [address] [place] [address] IMAGING REPORT Signed PATIENT: ELDER KIDD ACCOUNT: [id number] : 1935 LOCATION: ER AGE: 84 SEX: F EXAM STATUS: REG ER ORD. PHYSICIAN: MERVAT IRIZARRY MD REASON: dyspnea PROCEDURE: CT CHEST WO CONTRAST Exam: CT of chest without contrast INDICATION: Dyspnea TECHNIQUE: Sequential axial images through the chest obtained without IV contrast. Sagittal and coronal reformatted images were reconstructed from the axial data and reviewed. Comparisons: Chest x-ray same day FINDINGS: Visualized portions of the thyroid are unremarkable. No enlarged mediastinal lymph nodes are identified. Heart size is normal. No pericardial effusion. Thoracic aorta has a normal course and caliber. Moderate coronary artery calcifications. Pulmonary artery is nonenlarged. There is a masslike consolidation in the left Upper lobe measuring 4.0 x 4.9 cm, with some internal calcifications. There is a 1.4 cm spiculated nodule in the right upper lobe series 2 image 40. Several other smaller pulmonary nodules are also noted in the right lung. There is a trace left pleural effusion. Visualized upper abdomen is unremarkable. No suspicious osseous lesions or acute fractures. IMPRESSION: 1. Masslike consolidation in the left upper lobe measuring 4.0 x 4.9 cm. This is nonspecific in etiology could relate to chronic atelectasis with inspissated material versus malignancy. Recommend continued follow-up imaging if more invasive intervention is not performed. 2. Several other smaller pulmonary nodules noted in the right lung as described above. Exposure: One or more of the following in the visualized dose reduction techniques were utilized for this examination: 1. Automated exposure control 2. Adjustment of the MA and/or KV according to patient size 3. Use of iterative of reconstructive technique Electronically signed by: Luigi Richards MD (03/16/2020 6:59 PM) [facility] DICTATED AND SIGNED BY: LUIGI RICHARDS MD DATE: 03/16/20 342 CC: JEOVANNY SAMUELS MD; MERVAT IRIZARRY MD ~MTH0 0 (MERVAT IRIZARRY MD) Heart Score: Risk Factors: Risk Factors: DM, Current or recent (<one month) smoker, HTN, HLP, family history of CAD, obesity. Risk Scores: Score 0 - 3: 2.5% MACE over next 6 weeks - Discharge Home Score 4 - 6: 20.3% MACE over next 6 weeks - Admit for Clinical Observation Score 7 - 10: 72.7% MACE over next 6 weeks - Early Invasive Strategies (DAVY JEFFERSON MD) HEART Score for Chest Pain: HEART Score for Chest Pain Response (Comments) Value History Moderately Suspicious 1 ECG Nonspecific Repolarizatio 1 Age > 65 2 Risk Factors 1 or 2 Risk Factors 1 Troponin >1-<3x Normal Limit 1 Total 6 Course & Med Decision Making: Course & Med Decision Making Care transitioned at shift change, pending labs and chest x-ray [] (DAVY JEFFERSON MD) Course & Med Decision Making See Chucky Harris chart for details. Review of history and patient significant for Mnire's disease, hypertension, coronary artery disease, status post ME and PCI CI with stent displacement x4, hyperlipidemia, lung cancer treated with radiation x3, peripheral neuropathy, osteoarthritis, dysphagia to solids and liquids, chronic constipation, ovarian cyst, GERD, and deconditioning. Patient for the past week has been feeling more weak and fatigued. Patient no longer smokes tobacco. No specific ill contacts. No recent travel. In the past is followed with Dr. Guzman neuorologsybil Parrish, [facility] cardiology and Dr. Alvarado for her anxiety. Patient takes metoprolol 100 daily lisinopril 20 daily, isosorbide 60 mg daily, vitamin D3, aspirin 81, amlodipine 5 mg daily. Reviewed history with son-advised his mother has been feeling more weak the past week. No acute change but generalized fatigue. No reported focal changes.. Today he was very weak and was unable to do her daily activities. Discussed presentation testing and treatment plan with Dr. Samuels Impression: 1. Weakness 2. Fatigue 3. Hyponatremia 116 4. Diabetes= 140 5. CHF diastolic dysfunction BNP 2545 6. Elevated troponin 0 0.190 7. History of lung cancer-history of radiation treatment x3 diagnosed 2017 8. Pneumonia- Post obstructional? 9. Lt. Upper Lobe Mass (MERVAT IRIZARRY MD) Dragon Disclaimer: Inez Disclaimer: This electronic medical record was generated, in whole or in part, using a voice recognition dictation system. (DAVY JEFFERSON MD) Departure Departure: Referrals: JEOVANNY SAMUELS MD (PCP) DAVY JEFFERSON MD Mar 16, 2020 17:54 MERVAT IRIZARRY MD Mar 16, 2020 18:42
[2020-03-16 17:58] LABS: CALCIUM 8.9 mg/dL (8.5-10.1); CREATININE 0.7 mg/dL (0.6-1.0); GFR 79.7; POTASSIUM 3.5 mmol/L (3.5-5.1)
[2020-03-16] MEDS ORDERED: IV NORMAL SALINE 1,000ML 1,000 ML IV ONE (18:00)
[2020-03-16] MEDS ORDERED: ONDANSETRON PF 4 MG/2 ML VIAL. IVP ONE (18:00)
[2020-03-16 18:09] LABS: MAGNESIUM 1.8 mg/dL (1.8-2.4)
[2020-03-16] MEDS ORDERED: SODIUM BICARB ADULT 8.4% 50 MEQ/50 ML DISP.SYRIN. IV ONE (18:15)
[2020-03-16 18:17] LABS: BILIRUBIN,URINE NEG (NEG); CLARITY,URINE CLEAR; COLOR,URINE YELLOW; GLUCOSE,URINE NEG (NEG)
[2020-03-16 18:18] LABS: BACTERIA,URINE FEW /HPF (0-FEW); NITRITE,URINE NEG (NEG); RBC,URINE OCC /HPF (0-2); SQUAMOUS EPITHELIAL CELL,UR OCC /LPF; UROBILINOGEN,URINE 0.2 mg/dL (0.2 mg/dL); WBC,URINE OCC /HPF (0-4)
--- NOTE | 2020-03-16 18:18 | RAD ---
XR CHEST 1V CLINICAL INDICATIONS: Stroke. COMPARISON: None available. Findings: There is a consolidative infiltrate within the lateral aspect of the left upper lobe with w ell-defined borders. There is mild elevation of the left hemidiaphragm and the heart is slightly seen towards the left side. Therefore there is evidence of volume loss. This may indicate collapse of the left upper lobe. This could be due to central obstructing lesion such as a neoplasm or mucous plug. There is platelike atelectasis within the right upper lobe. Small lung nodule is seen within the late ral aspect of the right midlung zone which measures 12 mm. Heart size and mediastinum are unremarkabl e. IMPRESSION: Collapse of the left upper lobe which may be secondary to central obstructing lesion such as a mucous plug or neoplasm. Platelike atelectasis of the right upper lobe. Right midlung zone nodule. Electronically signed by: Oscar Kellogg MD (03/16/2020 6:16 PM) [id number]
[2020-03-16] MEDS ORDERED: AZITHROMYCIN 250 MG in IV NORMAL SALINE 250ML 250 ML IV ONE (18:30)
[2020-03-16] MEDS ORDERED: FUROSEMIDE 40 MG/4 ML VIAL IVP ONE (18:30)
[2020-03-16] MEDS ORDERED: ONDANSETRON PF 4 MG/2 ML VIAL. IVP PRN (18:45)
[2020-03-16] MEDS ORDERED: ACETAMINOPHEN 325 MG TABLET PO PRN (18:45)
--- NOTE | 2020-03-16 19:02 | RAD ---
Exam: CT of chest without contrast INDICATION: Dyspnea TECHNIQUE: Sequential axial images through the chest obtained without IV contrast. Sagittal and coron al reformatted images were reconstructed from the axial data and reviewed. Comparisons: Chest x-ray same day FINDINGS: Visualized portions of the thyroid are unremarkable. No enlarged mediastinal lymph nodes are identifi ed. Heart size is normal. No pericardial effusion. Thoracic aorta has a normal course and caliber. Modera te coronary artery calcifications. Pulmonary artery is nonenlarged. There is a masslike consolidation in the left Upper lobe measuring 4.0 x 4.9 cm, with some internal c alcifications. There is a 1.4 cm spiculated nodule in the right upper lobe series 2 image 40. Several other smaller pulmonary nodules are also noted in the right lung. There is a trace left pleural effusion. Visualized upper abdomen is unremarkable. No suspicious osseous lesions or acute fractures. IMPRESSION: 1. Masslike consolidation in the left upper lobe measuring 4.0 x 4.9 cm. This is nonspecific in etio logy could relate to chronic atelectasis with inspissated material versus malignancy. Recommend mark nued follow-up imaging if more invasive intervention is not performed. 2. Several other smaller pulmonary nodules noted in the right lung as described above. Exposure: One or more of the following in the visualized dose reduction techniques were utilized for this examination: 1. Automated exposure control 2. Adjustment of the MA and/or KV according to patient size 3. Use of iterative of reconstructive technique Electronically signed by: Luigi Youngblood MD (03/16/2020 6:59 PM) [facility]
[2020-03-16] MEDS ORDERED: IV NORMAL SALINE 50ML 50 ML ONE (19:13)
[2020-03-16] MEDS ORDERED: cefTRIAXone SODIUM 1 GM VIAL ONE (19:13)
[2020-03-16] MEDS: IPRATRPIUM/ALBUTEROL 0.5/2.5MG 3 ML NEBU. NEB SCH (20:00)
--- NOTE | 2020-03-16 20:20 | NUR ---
Pt was admitted to [facility] room 124 from ER via [facility], accompanied by EMS and nursing staff. Pt pulled over from gurney to bed x 3 assist. Admission assessment completed. Pt stated that she has been feeling ill the last few weeks but felt increasing worse the last few days. Pt was seen by her PCP and was swabbed for Covid but no results back yet. Health history reviewed with pt. Pt unsure of names of her home medication, stated "lots of heart medications" and asked that we call her son. SCDs for VTE. Pt wants flu vaccine, order placed. PT/OT consulted. Pt was given written information regarding hospital policies, unit procedures and contact persons. Valuables were checked and left at bedside. Don (Son) was called and gave home medications over the phone. Pt requested pudding.
[2020-03-16 20:50] VITALS: BP 126/57
[2020-03-16] MEDS ORDERED: AMLO-186 PO (21:50)
[2020-03-16] MEDS ORDERED: CHOL500045 PO (21:50)
[2020-03-16] MEDS ORDERED: ZOLPIDEM 5 MG TABLET. PO PRN (22:15)
[2020-03-16 23:15] VITALS: BP 115/48
[2020-03-17] MEDS: IV NORMAL SALINE 1,000ML 1,000 ML IV SCH ×3 (03:39→21:10)
[2020-03-17 05:35] VITALS: BP 110/42
[2020-03-17 06:34] LABS: BASO % 0 % (0-3); EOS % 0 % (0-3); HEMATOCRIT 36.1 % (36.0-47.0); LYMPH # 1.3 x10^3/uL (1.0-4.8); LYMPH % 15 % (24-48); MEAN CORPUSCULAR HEMOGLOBIN 29 pg (25-35); MEAN CORPUSCULAR HGB CONC 33 g/dL (31-37); MEAN CORPUSCULAR VOLUME 87 fL (79-100); MONO # 1.1 x10^3/uL (0.0-1.1); MONO % 13 % (0-9); NEUT # 6.2 x10^3uL (1.8-7.7); NEUT % 72 % (31-73); PLATELET COUNT 283 x10^3/uL (140-400); RED BLOOD COUNT 4.17 x10^6/uL (3.50-5.40); RED CELL DISTRIBUTION WIDTH 13.3 % (11.5-14.5); WHITE BLOOD COUNT 8.7 x10^3/uL (4.0-11.0)
[2020-03-17 06:50] LABS: ALBUMIN 3.1 g/dL (3.4-5.0); ALBUMIN/GLOBULIN RATIO 0.9 (1.0-1.7); CALCIUM 8.2 mg/dL (8.5-10.1); CREATININE 0.9 mg/dL (0.6-1.0); GFR 59.7; TOTAL BILIRUBIN 0.4 mg/dL (0.2-1.0); TOTAL PROTEIN 6.5 g/dL (6.4-8.2)
[2020-03-17 06:54] LABS: POTASSIUM 2.9 mmol/L (3.5-5.1)
[2020-03-17] MEDS ORDERED: POTASSIUM CHLORIDE 10MEQ 100 ML IV SCH (07:15)
[2020-03-17] MEDS: IPRATRPIUM/ALBUTEROL 0.5/2.5MG 3 ML NEBU. NEB SCH ×2 (08:00→12:00)
[2020-03-17 08:09] LABS: % BANDS 1 % (0-9); % EOS 1 % (0-5); % LYMPHS 15 % (24-48); % MONOS 12 % (0-10); % SEGS 71 % (35-66); PLT ESTIMATE ADEQUATE (ADEQUATE)
[2020-03-17] MEDS ORDERED: ASPIRIN 325 MG TABLET PO SCH (09:00)
[2020-03-17] MEDS: amLODIPine BESYLATE 5 MG TABLET PO SCH (09:00)
[2020-03-17] MEDS: CHOLECALCIFEROL (VITAMIN D3) 1,000 UNIT TABLET PO SCH (09:06)
[2020-03-17] MEDS: ASPIRIN ENTERIC COATED 81 MG TABLET.DR. PO SCH (09:06)
[2020-03-17] MEDS: LACTOBACILLUS RHAMNOSUS GG 1 CAPSULE. PO SCH ×2 (09:06→21:10)
[2020-03-17] MEDS ORDERED: levoFLOXacin PER PHARMACY 1 EACH. MC PRN (09:15)
[2020-03-17] MEDS: LISINOPRIL 20 MG TABLET PO SCH (09:35)
[2020-03-17] MEDS: METOPROLOL SUCC 24HR ER 50 MG TAB.ER.24H. PO SCH (09:35)
[2020-03-17] MEDS: ISOSORBIDE MONONITRATE ER 30 MG TAB.ER.24H PO SCH (09:36)
[2020-03-17] MEDS: POTASSIUM CHLORIDE 20 MEQ TABLET.ER. PO SCH ×3 (10:42→21:10)
--- NOTE | 2020-03-17 11:25 | HP ---
ADMIT DATE: 03/16/2020 HISTORY OF PRESENT ILLNESS: An 84-year-old female apparently just collapsed at home. She was extremely weak and tired. The patient possibly is having a stroke. She had acute CT scan, which was negative. Her blood sugar was 134; however, her potassium was in the one-teen range and was markedly lethargic. The patient did have some urinary incontinence and was brought in to be admitted for possible stroke, but definitely a hyponatremia, pneumonia. The patient this morning is much improved, alert, oriented. Speech fluent. No neurological deficits anywhere. PAST MEDICAL HISTORY: Left lung cancer, she has received radiation, apparently has been followed up with her pigment presser in some time; however, the patient has had a history of cataracts, Meniere's syndrome, peripheral neuropathy, coronary artery disease, cardiac stent x 4, hypercholesterolemia, hypertension, history of lung cancer in 2017, pneumonia, cholecystectomy, constipation, osteoarthritis, right shoulder repair, hypothyroidism, smoking quit in 2017, skin cancer, radiation therapy. Influenza up-to-date. FAMILY HISTORY: Positive for chronic kidney disease. ALLERGIES: PENICILLIN AND CODEINE. MEDICATIONS: The patient otherwise on Zocor 20, isosorbide 60, metoprolol 100 daily, amlodipine 5, lisinopril 20, aspirin 81, diazepam 5, vitamin D3. SOCIAL HISTORY: Denies presently smoking, had about [id number] smoking prior to 2017 when she quit. Denies alcohol or drug use. REVIEW OF SYSTEMS: Otherwise, ____ any problem with her bowels or bladder. Mild nausea. Did have incontinence, but other than that, she says she is feeling good. She denies any weakness anywhere, paresthesias, difficulty in speaking at the present time. PHYSICAL EXAMINATION: GENERAL: Pleasant white female, in no apparent distress. VITAL SIGNS: Blood pressure 158/60, respiratory rate 16, pulse 60, afebrile, 97% on room air. HEENT: The patient's head was atraumatic, normocephalic. Eyes: PERRLA without jaundice. Mouth and throat were normal. NECK: Supple, no JVD or thyromegaly. LUNGS: Diminished, but clear throughout except for some diminished breath sounds in the left upper lobe. CARDIOVASCULAR: Regular sinus rhythm. ABDOMEN: Soft, nontender. EXTREMITIES: No clubbing, cyanosis, nor edema. NEUROLOGIC: The eyes were PERRLA. Speech fluent, spontaneous, appropriate. The patient is moving all extremities well with good muscle strength and baseline muscle strength as indicated. In any case, the patient was stable there. LABORATORY DATA: Showed a white count of 12,000. The patient's troponin normal. She did have an elevated BNP of 2500. Sodium 116, potassium 3.5, potassium came down. Lactic acid 1.3. Urine unremarkable. The patient will be monitored accordingly. Make further evaluation on her. IMPRESSION: Possible stroke, transient ischemic attack, pneumonia left upper lobe, hyponatremia, type 2 diabetes, chronic congestive heart failure, elevated troponin, history of lung cancer with radiation therapy, left upper lobe mass. PLAN: Otherwise continue to monitor her accordingly for any possible stroke activity. Continue with IV antibiotic therapy, breathing treatments as indicated. JEOVANNY SAMUELS MD DR: AIDE/ty JOB#: [id number] / [id number]
[2020-03-17 14:09] VITALS: BP 123/54
[2020-03-17] MEDS: IPRATROPIUM/ALBUTEROL 20/100mcg/INH INHALER. INH SCH ×3 (16:00→21:10)
[2020-03-17 19:25] VITALS: BP 118/68
[2020-03-17] MEDS: diazePAM 5 MG TABLET. PO PRN (21:10)
[2020-03-17] MEDS: SIMVASTATIN 20 MG TABLET PO SCH (21:10)
[2020-03-17] MEDS: AZITHROMYCIN 500 MG in IV NORMAL SALINE 250ML 250 ML IV SCH (21:10)
[2020-03-17] MEDS: ACETAMINOPHEN 500 MG TABLET PO PRN (21:10)
[2020-03-17 23:00] VITALS: BP 136/76
[2020-03-18 06:05] VITALS: BP 122/50
--- NOTE | 2020-03-18 06:20 | NUR ---
Pt awake in bed at change of shift watching TV. Pt A&Ox4, very pleasant and cooperative with cares. Pt stated that she "feels better today, worked some with PT/OT." Pt up with walker to bathroom. Pt slept well during night after taking PRN Valium.
[2020-03-18 06:33] LABS: BASO % 1 % (0-3); EOS # 0.1 x10^3/uL (0.0-0.7); EOS % 2 % (0-3); HEMATOCRIT 32.4 % (36.0-47.0); LYMPH # 1.2 x10^3/uL (1.0-4.8); LYMPH % 21 % (24-48); MEAN CORPUSCULAR HEMOGLOBIN 30 pg (25-35); MEAN CORPUSCULAR HGB CONC 34 g/dL (31-37); MEAN CORPUSCULAR VOLUME 87 fL (79-100); MONO # 0.7 x10^3/uL (0.0-1.1); MONO % 12 % (0-9); NEUT # 3.7 x10^3uL (1.8-7.7); NEUT % 64 % (31-73); PLATELET COUNT 233 x10^3/uL (140-400); RED BLOOD COUNT 3.72 x10^6/uL (3.50-5.40); RED CELL DISTRIBUTION WIDTH 13.5 % (11.5-14.5); WHITE BLOOD COUNT 5.8 x10^3/uL (4.0-11.0)
[2020-03-18 06:49] LABS: ALBUMIN 2.5 g/dL (3.4-5.0); ALBUMIN/GLOBULIN RATIO 0.8 (1.0-1.7); CALCIUM 7.9 mg/dL (8.5-10.1); CREATININE 0.9 mg/dL (0.6-1.0); GFR 59.7; POTASSIUM 4.1 mmol/L (3.5-5.1); TOTAL BILIRUBIN 0.2 mg/dL (0.2-1.0); TOTAL PROTEIN 5.5 g/dL (6.4-8.2)
[2020-03-18] MEDS ORDERED: FLU VACC QS 2020-21(6MOS+)/PF 0.5 ML SYRINGE. VAX IM ONE (09:00)
[2020-03-18] MEDS: CHOLECALCIFEROL (VITAMIN D3) 1,000 UNIT TABLET PO SCH (09:04)
[2020-03-18] MEDS: IV NORMAL SALINE 1,000ML 1,000 ML IV SCH ×2 (09:04→19:37)
[2020-03-18] MEDS: ISOSORBIDE MONONITRATE ER 30 MG TAB.ER.24H PO SCH (09:05)
[2020-03-18] MEDS: METOPROLOL SUCC 24HR ER 50 MG TAB.ER.24H. PO SCH (09:05)
[2020-03-18] MEDS: amLODIPine BESYLATE 5 MG TABLET PO SCH (09:06)
[2020-03-18] MEDS: LACTOBACILLUS RHAMNOSUS GG 1 CAPSULE. PO SCH ×2 (09:06→20:42)
[2020-03-18] MEDS: ASPIRIN ENTERIC COATED 81 MG TABLET.DR. PO SCH (09:06)
[2020-03-18] MEDS: POTASSIUM CHLORIDE 20 MEQ TABLET.ER. PO SCH ×3 (09:06→20:43)
[2020-03-18] MEDS: LISINOPRIL 20 MG TABLET PO SCH (09:06)
--- NOTE | 2020-03-18 10:31 | PN ---
DATE: SUBJECTIVE: An 84-year-old female with history of lung cancer, pneumonia in her left upper lobe. The patient says she is feeling a little better this morning, COVID negative. The patient is receiving PT and OT and moving around carefully. OBJECTIVE: VITAL SIGNS: Blood pressure 120/50, respiratory rate 20, pulse 63. Afebrile. GENERAL: The patient is alert and oriented. LUNGS: Diminished, but basically clear. CARDIOVASCULAR: Stable. ABDOMEN: Soft, nontender. EXTREMITIES: No clubbing, cyanosis, nor edema. The patient seems to be making excellent progress overall. NEUROLOGIC: No further episodes of her problems with passing out or with the tumor in her left upper lobe. Otherwise, she continues to receive IV antibiotic therapy if she has some pneumonic process up there. IMPRESSION AND PLAN: Possible transient ischemic attack; pneumonia, left upper lobe; hyponatremia; type 2 diabetes; chronic congestive heart failure; elevated troponins; history of lung cancer with radiation to the left upper lobe mass. The patient continues to receive IV antibiotic therapy and she also has severe protein malnutrition. COVID negative. JEOVANNY SAMUELS MD DR: AIDE/ty JOB#: [id number] / [id number]
[2020-03-18 10:57] VITALS: BP 102/62
[2020-03-18] MEDS: IPRATRPIUM/ALBUTEROL 0.5/2.5MG 3 ML NEBU. NEB SCH ×2 (14:58→20:11)
[2020-03-18 16:15] VITALS: BP 125/55
[2020-03-18 19:53] VITALS: BP 107/62
[2020-03-18] MEDS: AZITHROMYCIN 500 MG in IV NORMAL SALINE 250ML 250 ML IV SCH (20:42)
[2020-03-18] MEDS: diazePAM 5 MG TABLET. PO PRN (20:43)
[2020-03-18] MEDS: SIMVASTATIN 20 MG TABLET PO SCH (20:43)
[2020-03-18] MEDS ORDERED: ONDANSETRON PF 4 MG/2 ML VIAL. ONE (22:11)
[2020-03-18] MEDS: ONDANSETRON PF 4 MG/2 ML VIAL. IVP PRN (22:15)
[2020-03-18 22:23] VITALS: BP 147/68
[2020-03-19] MEDS: IPRATRPIUM/ALBUTEROL 0.5/2.5MG 3 ML NEBU. NEB SCH ×3 (05:07→20:27)
[2020-03-19 05:25] VITALS: BP 121/58
[2020-03-19] MEDS: IV NORMAL SALINE 1,000ML 1,000 ML IV SCH ×2 (05:38→16:29)
--- NOTE | 2020-03-19 05:47 | NUR ---
Shift Note: Pt a/o x4, VSS, no c/o pain, nausea x1 (zofran given w/relief verbalized), pt ambulating to toilet independently, IV fluids infusing as ordered, antibiotics given as ordered
[2020-03-19 06:21] LABS: BASO % 1 % (0-3); EOS # 0.4 x10^3/uL (0.0-0.7); EOS % 6 % (0-3); HEMATOCRIT 32.2 % (36.0-47.0); HEMOGLOBIN 10.6 g/dL (12.0-15.5); LYMPH # 1.2 x10^3/uL (1.0-4.8); LYMPH % 19 % (24-48); MEAN CORPUSCULAR HEMOGLOBIN 29 pg (25-35); MEAN CORPUSCULAR HGB CONC 33 g/dL (31-37); MEAN CORPUSCULAR VOLUME 88 fL (79-100); MONO # 0.6 x10^3/uL (0.0-1.1); MONO % 9 % (0-9); NEUT # 4.2 x10^3uL (1.8-7.7); NEUT % 66 % (31-73); PLATELET COUNT 242 x10^3/uL (140-400); RED BLOOD COUNT 3.65 x10^6/uL (3.50-5.40); WHITE BLOOD COUNT 6.4 x10^3/uL (4.0-11.0)
[2020-03-19 06:33] LABS: ALBUMIN 2.6 g/dL (3.4-5.0); ALBUMIN/GLOBULIN RATIO 0.9 (1.0-1.7); CALCIUM 7.8 mg/dL (8.5-10.1); CREATININE 0.8 mg/dL (0.6-1.0); GFR 68.3; TOTAL BILIRUBIN 0.2 mg/dL (0.2-1.0); TOTAL PROTEIN 5.5 g/dL (6.4-8.2)
[2020-03-19] MEDS: ASPIRIN ENTERIC COATED 81 MG TABLET.DR. PO SCH (08:52)
[2020-03-19] MEDS: amLODIPine BESYLATE 5 MG TABLET PO SCH (08:52)
[2020-03-19] MEDS: CHOLECALCIFEROL (VITAMIN D3) 1,000 UNIT TABLET PO SCH (08:52)
[2020-03-19] MEDS: LACTOBACILLUS RHAMNOSUS GG 1 CAPSULE. PO SCH ×2 (08:52→20:25)
[2020-03-19] MEDS: METOPROLOL SUCC 24HR ER 50 MG TAB.ER.24H. PO SCH (08:53)
[2020-03-19] MEDS: ISOSORBIDE MONONITRATE ER 30 MG TAB.ER.24H PO SCH (08:53)
[2020-03-19] MEDS: LISINOPRIL 20 MG TABLET PO SCH (08:54)
[2020-03-19] MEDS: POTASSIUM CHLORIDE 20 MEQ TABLET.ER. PO SCH ×3 (08:54→20:25)
[2020-03-19 10:44] VITALS: BP 115/69
[2020-03-19 15:31] VITALS: BP 135/73
[2020-03-19] MEDS: ACETAMINOPHEN 500 MG TABLET PO PRN ×2 (15:34→20:25)
--- NOTE | 2020-03-19 17:56 | NUR ---
Pt A&ox4, VSS. no c/o of pain of n/v. pt stated she feels better and did work with PT/OT today without difficulty or complaints. Patient eager to get better and able to ambulated to bathroom and back to bed. Assistive device at bedside. Pt is very pleasant and thankful for the care received.
[2020-03-19 19:55] VITALS: BP 125/67
--- NOTE | 2020-03-19 20:15 | PN ---
DATE: SUBJECTIVE: An 84-year-old female admitted with a significant possible TIA, left upper lobe pneumonia, severe hyponatremia and diabetes. The patient says she is feeling a little better today. She is still receiving IV antibiotic therapy. OBJECTIVE: VITAL SIGNS: Blood pressure 115/70, respiratory rate 20, pulse 74, presently afebrile, oxygen saturation 98% on room air, but still very weak appearing and I think that is the case, she is just very weak being 84, I think this pneumonia has sapped her strength. GENERAL: The patient is alert and oriented. LUNGS: Diminished, poor movement of air. CARDIOVASCULAR: Regular sinus rhythm, S1, S2, without murmur, rub, or extra heart sound. ABDOMEN: Soft, nontender. IMPRESSION: Pneumonia, left upper lobe; history of lung cancer, possible transient ischemic attack, hyponatremia, congestive heart failure, elevated troponins, history of lung cancer with radiation and now left upper lobe mass. PLAN: Continue on IV antibiotic therapy. Continue PT, OT and make further evaluation on her as indicated. JEOVANNY SAMUELS MD DR: AIDE/ty JOB#: [id number] / [id number]
[2020-03-19] MEDS: AZITHROMYCIN 500 MG in IV NORMAL SALINE 250ML 250 ML IV SCH (20:25)
[2020-03-19] MEDS: SIMVASTATIN 20 MG TABLET PO SCH (20:25)
[2020-03-19] MEDS: diazePAM 5 MG TABLET. PO PRN (20:26)
[2020-03-19] MEDS: ONDANSETRON PF 4 MG/2 ML VIAL. IVP PRN (21:23)
[2020-03-19 23:21] VITALS: BP 101/64
[2020-03-20] MEDS: IV NORMAL SALINE 1,000ML 1,000 ML IV SCH (03:08)
--- NOTE | 2020-03-20 04:12 | NUR ---
PT HAD ONE EPISODE OF NAUSEA WITHOUT VOMITING AFTER TAKING HS PILLS. PRN ZOFRAN ADMINISTERED WITH IMPROVEMENT. PT RESTED THROUGH NIGHT WITHOUT ANY FURTHER C/O.
[2020-03-20] MEDS: IPRATRPIUM/ALBUTEROL 0.5/2.5MG 3 ML NEBU. NEB SCH (04:30)
[2020-03-20 05:28] VITALS: BP 113/59
[2020-03-20 07:36] LABS: HEMATOCRIT 33.4 % (36.0-47.0); HEMOGLOBIN 11.1 g/dL (12.0-15.5); RED BLOOD COUNT 3.79 x10^6/uL (3.50-5.40); RED CELL DISTRIBUTION WIDTH 13.2 % (11.5-14.5); WHITE BLOOD COUNT 6.3 x10^3/uL (4.0-11.0)
[2020-03-20 07:39] LABS: CALCIUM 7.9 mg/dL (8.5-10.1); CREATININE 0.8 mg/dL (0.6-1.0); GFR 68.3; POTASSIUM 4.4 mmol/L (3.5-5.1)
[2020-03-20] MEDS: ASPIRIN ENTERIC COATED 81 MG TABLET.DR. PO SCH (08:12)
[2020-03-20] MEDS: METOPROLOL SUCC 24HR ER 50 MG TAB.ER.24H. PO SCH (08:13)
[2020-03-20] MEDS: CHOLECALCIFEROL (VITAMIN D3) 1,000 UNIT TABLET PO SCH (08:13)
[2020-03-20] MEDS: POTASSIUM CHLORIDE 20 MEQ TABLET.ER. PO SCH (08:13)
[2020-03-20] MEDS: LACTOBACILLUS RHAMNOSUS GG 1 CAPSULE. PO SCH (08:13)
[2020-03-20] MEDS: ISOSORBIDE MONONITRATE ER 30 MG TAB.ER.24H PO SCH (08:14)
[2020-03-20] MEDS: LISINOPRIL 20 MG TABLET PO SCH (08:14)
[2020-03-20 08:15] VITALS: BP 113/67
[2020-03-20] MEDS: amLODIPine BESYLATE 5 MG TABLET PO SCH (08:15)
[2020-03-20] MEDS ORDERED: LEVO500T8 PO (09:24)
[2020-03-20] MEDS ORDERED: IPRA3AMP29 NEB (09:24)
--- NOTE | 2020-03-20 09:50 | NUR ---
DISCHARGE NOTE-PT TO DISCHARGE THIS AM TO HOME WITH SON. PIV DISCONTINUED, ET TELEMETRY REMOVED FROM PT/ROOM. PT DRESSING IN STREET CLOTHES AWAITING PATIENT SON'S ARRIVAL. WILL UTILIZE WHEELCHAIR TO DOOR FOR DC HOME IN PERSONAL VEHICLE.
--- NOTE | 2020-03-20 10:18 | DISCH ---
HOME HEALTH DISCHARGE/MEDS DISCHARGE INFORMATION: Discharge Date: Mar 20, 2020 Final Diagnosis: Pneumonia CHF Medical Problems: (1) Alteration consciousness Status: Acute Condition on Discharge: Stable CODE STATUS: Code Status: Full HOME HEALTH: Face to Face: I certify this patient is under my care and that I, or a nurse practitioner or physician's community assistant working with me, had a face to face encounter that meets the physician face to face encounter requirements with this patient on 03/20/2020. Medical Condition(s): CHF, Pneumonia Chcf For: Assess Cardiopulm Status, Assess & Educate Safety, Assess/Skilled Observatio, Medication Management Physical Therapy For: Evalulation/Treatment Occupational Therapy For: Evaluation/Treatment Homebound Status Met By: Extreme weakness w/ amb. POST DISCHARGE ORDERS: Activity Instructions for Disc: Activity as tolerated Weight Bearing Status after Di: As tolerated DIET AFTER DISCHARGE: Cardiac CHECKS AFTER DISCHARGE: Checks after discharge: Check blood press - daily, Weigh Yourself Daily CERTIFICATION STATEMENT: Certification Statement: Based on the above finding, I certify that this patient is confined to the home and needs intermittent detention care, physical therapy and/or speech therapy, or continues to need occupational therapy.~ This patient is under my care, and I have initiated the establishment of the plan of care.~ This patient will be followed by myself or a community physician who will periodically review the plan of care. DISCHARGE MEDICATIONS: Home Meds Active Scripts Levofloxacin (LEVOFLOXACIN) 500 Mg Tablet, 1 TAB PO DAILY for pneumonia, #10 TAB Prov:JEOVANNY SAMUELS MD 03/20/20 Ipratropium/Albuterol Sulfate (DUONEB 0.5-3(2.5) MG/3 ML) 3 Ml Ampul.neb, 3 ML NEB TID for copd for 30 Days, #90 EACH Prov:JEOVANNY SAMUELS MD 03/20/20 Reported Medications Cholecalciferol (Vitamin D3) (Vitamin D3) 125 Mcg Tablet, 125 MCG PO DAILY for Supplement LAST DOSE GIVEN: DATE: TIME: NEXT DOSE DUE: DATE: TIME: 03/16/20 Amlodipine Besylate (AMLODIPINE BESYLATE) 5 Mg Tablet, 5 MG PO DAILY for HTN LAST DOSE GIVEN: DATE: TIME: NEXT DOSE DUE: DATE: TIME: 03/16/20 Aspirin (ASPIR-LOW) 81 Mg Tablet.dr, 81 MG PO DAILY for HEART LIONEL LAST DOSE GIVEN: DATE: TIME: NEXT DOSE DUE: DATE: TIME: 04/17/18 Simvastatin (SIMVASTATIN) 20 Mg Tablet, 20 MG PO HS for CHOLESTEROL LAST DOSE GIVEN: DATE: TIME: NEXT DOSE DUE: DATE: TIME: 04/17/18 Metoprolol Succinate (METOPROLOL SUCCINATE ( XL )) 100 Mg Tab.er.24h, 100 MG PO DAILY for HTN LAST DOSE GIVEN: DATE: TIME: NEXT DOSE DUE: DATE: TIME: 04/17/18 Isosorbide Mononitrate (ISOSORBIDE MONONITRATE ER) 60 Mg Tab.er.24h, 60 MG PO DAILY for HTN LAST DOSE GIVEN: DATE: TIME: NEXT DOSE DUE: DATE: TIME: 04/17/18 Lisinopril (LISINOPRIL) 20 Mg Tablet, 20 MG PO DAILY for HTN LAST DOSE GIVEN: DATE: TIME: NEXT DOSE DUE: DATE: TIME: 04/17/18 Diazepam (DIAZEPAM) 5 Mg Tablet, 5 MG PO HS PRN for INSOMNIA LAST DOSE GIVEN: DATE: TIME: NEXT DOSE DUE: DATE: TIME: 04/17/18 JEOVANNY SAMUELS MD Mar 20, 2020 10:17
== END 2020-03-20 10:15 | disposition home health service (06) | DRG 177 ==
LOC: ER 16:58 → 1 SOUTH 19:51
PROVIDERS: ADMIT Family Medicine; ATTEND Family Medicine
DX: J15.6 Pneumonia due to other Gram-negative bacteria (principal); E43 Unspecified severe protein-calorie malnutrition; E87.1 Hypo-osmolality and hyponatremia; I50.30 Unspecified diastolic (congestive) heart failure; J44.0 Chronic obstructive pulmonary disease with (acute) lower respiratory infection; Z68.20 Body mass index [BMI] 20.0-20.9, adult; E03.9 Hypothyroidism, unspecified; E78.00 Pure hypercholesterolemia, unspecified; H81.09 Meniere's disease, unspecified ear; I11.0 Hypertensive heart disease with heart failure; I25.10 Atherosclerotic heart disease of native coronary artery without angina pectoris; M19.011 Primary osteoarthritis, right shoulder; E11.42 Type 2 diabetes mellitus with diabetic polyneuropathy; Z20.822 Contact with and (suspected) exposure to COVID-19; Z85.118 Personal history of other malignant neoplasm of bronchus and lung; Z87.891 Personal history of nicotine dependence; Z92.3 Personal history of irradiation; Z95.5 Presence of coronary angioplasty implant and graft; J15.9 Unspecified bacterial pneumonia; M19.90 Unspecified osteoarthritis, unspecified site; Z88.0 Allergy status to penicillin; Z88.8 Allergy status to other drugs, medicaments and biological substances; Z90.49 Acquired absence of other specified parts of digestive tract; Z79.4 Long term (current) use of insulin
CPT/HCPCS: 36415; 51702; 70450; 71045; 71250; 80048; 80053; 81001; 83605; 83735; 83880; 84484; 85007; 85025; 85027; 85610; 85730; 87040; 87205; 90471; 90686; 93005; 94640; 96361; 96365; 96375; J0456; J0696; J1940; J1956; J2405; J3480; J7050; U0003; 97110; 97116; 97530; 97535; 99285-25; J7030